=== PATIENT | female | born 1950 | race Caucasian/White ===

== ENCOUNTER 2022-01-03 15:58 | Inpatient (IN) | payer OTHER ==
--- OUTSIDE RECORDS SUMMARY | 2022-01-03 16:01 | XMS REPORT | Continuity of Care Document ---
:1950 Author Organization [facility] t Address [facility] [place] [address] Care Team Providers Name Role Phone Mandy GARDNER, A Primary Care Physician JOSIE JORDAN Attending Clinician Unavailable Abhi Attending Clinician Unavailable Juan Carlos Navarrete MD Attending Clinician JUAN CARLOS NAVARRETE Attending Clinician Unavailable Doctor Unassigned, Name Attending Clinician Unavailable DR NEELIMA ISSA Attending Clinician Unavailable DR DIANA Attending Clinician Unavailable Abhi Admitting Clinician Unavailable JUAN CARLOS NAVARRETE Admitting Clinician Unavailable DR NEELIMA ISSA Admitting Clinician Unavailable DR DIANA Admitting Clinician Unavailable Payers Payer Name Policy Policy Number Effective Expiration Source Type Date Date [facility] DUAL [id number] 2021 COMP HMO D SNP 00:00:00 [place] [id number] 2021 00:00:00 [facility] - [id number] 2021 [facility] 00:00:00 (MEDICARE REPLACEMENT/ADVANTAG E - [place] [id number] [place]) [place] [facility] - [id number] FQ (INSTITUTIONAL) [facility] - MEDICARE [id number] COMPLETE (MEDICARE REPLACEMENT HMO) MEDICAREMEDICARE [id number] 1990 [facility] ity of PART A & 00:00:00 [facility] [id number] 1990 [place] -[phone] [address] [address]Medicare AARP-UNITED [id number] 2019 [facility] HEALTHCAREUNITED 00:00:00 [place] Me dical HEALTHCARE MEDICARE Branc h [id number] 2018-Present[address] [address], [place] [address]Medicare Supplement Problems Condition Condition Condition Status Onset Resolution Last Treating Co mments Source Name Details Category Date Date Treatment Clinician Date Microhemat Microhemat Disease Active U nivers uria uria 1-31 ity of 00:00: [place] [facility] Hiatal Hiatal Disease Active 2018-09 Univers hernia hernia 1-10 ity of 00:00: [place] [facility] Esophageal Esophageal Disease Active 2018-09 U nivers thickening thickening 1-10 it y of 00:00: [place] 00 Medical Branch Acquired Acquired Disease Active Unive rs complex complex 4-10 ity of cyst of cyst of 00:00: [place] kidney kidney 00 Medical Branch Liver Liver Disease Active Univers lesion, lesion, 4-10 ity of left lobe left lobe [facility]: [facility] Adjustment Adjustment Disease Active U nivers disorder disorder 4-23 ity of with with 00:00: [place] depressed depressed 00 [facility] mood mood Branch Dysphagia, Dysphagia, Disease Active U nivers unspecifie unspecifie 4-23 it y of d type d type 00:00: [place] 00 Medical Branch Adjustment Adjustment Disease Active U nivers insomnia insomnia 4-23 ity of 00:00: [place] 00 Medical Branch Adjustment Adjustment Disease Active U nivers insomnia insomnia 4-23 ity of 00:00: [place] 00 Medical Branch Dyslipidem Dyslipidem Disease Active 2016-09 U nivers ia ia 0-05 ity of 00:00: [place] 00 Medical Branch Screening Screening Disease Active Overview: Univers for for 15 Formattin ity of colorectal colorectal 00:00: g of this [place] cancer cancer 00 note Medical might be Branch different from the original. Added automatic ally from request for surgery [id number] History of History of Disease Active U nivers head and head and 9 ity of neck neck 00:00: [place] cancer cancer 00 Medical Branch History of History of Disease Active U nivers head and head and 05-08 ity of neck neck 00:00: [place] radiation radiation 00 [facility] Branch History of History of Disease Active U nivers colonic colonic 9-05 ity of polyps polyps 00:00: [place] [facility] Hemorrhoid Hemorrhoid Disease Active U caitlin s, s, 05-08 ity of unspecifie [place]specifie [place] hemorrhoid hemorrhoid Br anch type type Essential Essential Disease Active Uni vers hypertensi hypertensi 05-08 it y of on on 00:00: [facility] Branch Protein-ca Protein-ca Disease Active U caitlin concetta concetta 12-26 ity of malnutriti malnutriti [place] Gastrostom Gastrostom Disease Active U nivdavie y in place y in place 12-26 it y of 00:00: [facility] Branch Acute Acute Problem Active [place] exacerbati Exacerbati da on of on of Medical chronic Chronic Group obstructiv Obstructiv e airways e Airways disease Disease Osteoporos Osteoporos Disease Active U caitlin is is ity of [facility] Underweigh Underweigh Disease Resolve 2017-12-21 2017-12-21 Univers t t d 05-08 00:00:00 19:35:59 ity of 00:00: [place] [facility] Allergies, Adverse Reactions, Alerts Allergy Allergy Status Severity Reaction(s) Onset Inactive Treating Comm ents Source Name Type Date Date Clinician NO KNOWN Drug Active Univers ALLERGIE Class ity of S [facility] No Known DA Active [facility] s Social History Social Habit Start Date Stop Date Quantity Comments Source Exposure to Not sure [facility] SARS-CoV-2 [place] [facility] (event) Branch Alcohol intake 2021-10-03 2021-10-03 Current [facility] 00:00:00 00:00:00 non-drinker of [facility] alcohol Branch (finding) Tobacco use and 2018-11-18 2018-11-18 Never used Universit y of exposure 00:00:00 00:00:00 [facility] Sex Ass[birth year] At [birth year] Universit y of 00:00:00 00:00:00 [facility] Smoking Status Start Date Stop Date Source Never smoker University [facility] Medical Branch Medications Ordered Filled Start Stop Current Ordering Indication Dosage Frequency Signature Comments Components Source Medication Medication Date Date Medication? Clinician (SIG) Name Name sinai Yes Poison garry Apply to [facility] 2-11 area(s) 2 ity of acetonide 00:00: (two) [place] 0.1 % cream 00 times Medical daily. Branch denosumab 2020-0 Yes 60mg inject 1 Univ ers 60 mg/mL 9-16 mL under ity of injection 00:00: [place] 00 every 6 Medical (six) Branch months. denosumab 2020-0 Yes 60mg inject 1 Univ ers 60 mg/mL 9-16 mL under ity of injection 00:00: [place] 00 every 6 Medical (six) Branch months. denosumab 2020-0 Yes 60mg inject 1 Univ ers 60 mg/mL 9-16 mL under ity of injection 00:[place] 00 every 6 Medical (six) Branch months. fluticasone fluticasone No fluticason [place] propionate propionate e da 50 50 propionate Medical mcg/actuati mcg/actuati 50 G roup on nasal on nasal mcg/actuat spray,suspe spray,suspe ion nasal nsion USE 1 nsion USE 1 spray,susp SPRAY BY SPRAY BY ension USE INTRANASAL INTRANASAL 1 SPRAY BY ROUTE EVERY ROUTE EVERY INTRANASAL DAY DAY ROUTE EVERY DAY Multi Multi No Multi [place] Vitamin Vitamin Vitamin da Medical Group Prolia 60 Prolia 60 No Prolia 60 [place] mg/mL mg/mL mg/mL da subcutaneou subcutaneou subcutaneo Medical s syringe s syringe us syringe Group INJECT 1ML INJECT 1ML INJECT 1ML UNDER THE UNDER THE UNDER THE SKIN EVERY SKIN EVERY SKIN EVERY 6 MONTHS 6 MONTHS 6 MONTHS Vitamin D3 Vitamin D3 No Vitamin D3 [place] one po one po one po da daily daily daily Medical Group Immunizations Ordered Filled Immunization Date Status Comments [facility] e Immunization Name Name COVID-19, mRNA, COVID-19, mRNA, 2021-06-24 Completed [facility] LNP-S, PF, 30 LNP-S, PF, 30 00:00:00 Group mcg/0.3 mL dose mcg/0.3 mL dose (VPHealthBioNTPixelated) (WALTOP-BioNTPixelated) SARS-COV-2 COVID-19 2021-06-24 Completed Unive rsity of PFIZER VACCINE 00:00:00 [facility] SARS-COV-2 COVID-19 2021-06-24 Completed Unive rsity of PFIZER VACCINE 00:00:00 [facility] COVID-19, mRNA, COVID-19, mRNA, 2020-12-10 Completed [facility] LNP-S, PF, 30 LNP-S, PF, 30 00:00:00 Group mcg/0.3 mL dose mcg/0.3 mL dose (Pfizer-BioNTech) (Pfizer-BioNTech) SARS-COV-2 COVID-19 2020-12-10 Completed Unive rsity of PFIZER VACCINE 00:00:00 [facility] SARS-COV-2 COVID-19 2020-12-10 Completed Unive rsity of PFIZER VACCINE 00:00:00 [facility] COVID-19, mRNA, COVID-19, mRNA, 2020-11-18 Completed [facility] LNP-S, PF, 30 LNP-S, PF, 30 00:00:00 Group mcg/0.3 mL dose mcg/0.3 mL dose (Pfizer-BioNTech) (Pfizer-BioNTech) SARS-COV-2 COVID-19 2020-11-18 Completed Unive rsity of PFIZER VACCINE 00:00:00 [facility] SARS-COV-2 COVID-19 2020-11-18 Completed Unive rsity of PFIZER VACCINE 00:00:00 [facility] Influenza High Dose 2020-05-25 Completed Unive rsity of Quad 00:00:00 [facility] Influenza High Dose 2020-05-25 Completed Unive rsity of Quad 00:00:00 [facility] Influenza High Dose 2019-05-30 Completed Unive rsity of 00:00:00 [facility] Influenza High Dose 2019-05-30 Completed Unive rsity of 00:00:00 [facility] Influenza High Dose 2019-05-30 Completed Unive rsity of 00:00:00 [facility] Pneumococcal 13 2018-11-18 Completed Universit y of Conjugate, PCV13 00:00:00 [facility] dical (Prevnar 13) Branch Pneumococcal 13 2018-11-18 Completed Universit y of Conjugate, PCV13 00:00:00 [facility] dical (Prevnar 13) Branch Pneumococcal 13 2018-11-18 Completed Universit y of Conjugate, PCV13 00:00:00 [facility] (Prevnar 13) [place] Influenza High Dose 2018-07-15 Completed Unive rsity of 00:00:00 [facility] Influenza High Dose 2018-07-15 Completed Unive rsity of 00:00:00 [facility] Influenza High Dose 2018-07-15 Completed Unive rsity of 00:00:00 [facility] Influenza High Dose 2017-08-02 Completed Unive rsity of 00:00:00 [facility] Influenza High Dose 2017-08-02 Completed Unive rsity of 00:00:00 [facility] Influenza High Dose 2017-08-02 Completed Unive rsity of 00:00:00 [facility] Vital Signs Vital Name Observation Time Observation Value Comments Source BMI (Body Mass 2021-12-22 00:00:00 19.5 kg/m2 [facility] Medical Index) Group BP Systolic 2021-12-22 00:00:00 148 mm[Hg] [facility] Body Weight 2021-12-22 00:00:00 113.7 [lb_av] [facility] BP Diastolic 2021-12-22 00:00:00 90 mm[Hg] [facility] Height 2021-12-22 00:00:00 64 [in_i] [facility] BP Diastolic 2021-12-06 00:00:00 89 mm[Hg] [facility] Height 2021-12-06 00:00:00 64 [in_i] [facility] BMI (Body Mass 2021-12-06 00:00:00 19.4 kg/m2 [facility] Medical Index) Group BP Systolic 2021-12-06 00:00:00 156 mm[Hg] [facility] Body Weight 2021-12-06 00:00:00 113 [lb_av] [facility] BP Diastolic 2021-11-16 00:00:00 99 mm[Hg] [facility] Height 2021-11-16 00:00:00 64 [in_i] [facility] BMI (Body Mass 2021-11-16 00:00:00 19.4 kg/m2 [facility] Medical Index) Group BP Systolic 2021-11-16 00:00:00 171 mm[Hg] [facility] Body Weight 2021-11-16 00:00:00 113.3 [lb_av] [facility] Height 2021-03-14 14:12:00 162.56 CM Weight 2021-03-14 14:12:00 51.7 KG Height 2021-01-27 14:08:00 162.56 CM Weight 2021-01-27 14:08:00 51.7 KG Systolic blood 2021-01-04 13:03:00 158 mm[Hg] Univer sity of [facility] Diastolic blood 2021-01-04 13:03:00 81 [facility]Hg[facility] 2021-01-04 13:03:00 70 /min [facility] Body temperature 2021-01-04 13:03:00 36.17 Noreen [facility] Respiratory rate 2021-01-04 13:03:00 16 /min [facility] height 2021-01-04 13:03:00 162.6 cm [facility] Body weight 2021-01-04 13:03:00 52.164 kg [facility] BMI 2021-01-04 13:03:00 19.74 kg/m2 [facility] Oxygen saturation in 2021-01-04 13:03:00 97 /min [facility] Arterial blood by [facility] Pulse oximetry Branch Procedures Procedure Date / Time Performing Clinician Source Performed unlisted imaging order 2021-12-22 00:00:00 [facility] IR GASTRO TUBE CHANGE 2021-10-07 14:40:28 Charly Navarrete [facility] Medical Branch AUTHORIZATION FOR RELEASE 2021-10-03 06:01:00 Doctor Unassigned, [facility] [place] [facility] REPLACE RT LENS SYNTH 2021-03-21 00:00:00 [facility] SUBST PERQ Center REPLACE LT LENS SYNTH 2021-02-07 00:00:00 [facility] SUBST PERQ Center IR GASTRO TUBE CHANGE 2021-01-04 13:56:03 [facility]rete [facility] Branch Percutaneous Endoscopic [place] [facility] Cholecystectomy [place] [facility] Hyste[facility] [place] [facility] Plan of Care Planned Activity Planned Date Details Comments Source Future Scheduled 2028-11-18 Screening for University of Test 00:00:00 osteoporosis [facility] (procedure) [code = Branch [id number]] Future Scheduled 2027-06-14 Screening for University of Test 00:00:00 malignant neoplasm of [place] [facility] colon (procedure) Branch [code = 717560381] Future Scheduled 2027-06-14 Screening for University of Test 00:00:00 malignant neoplasm of [facility] colon (procedure) Branch [code = [id number]] Future Scheduled 2021-05-04 INFLUENZA VACCINE Univer sity of Test 00:00:00 (Season Ended) [code = [facility] INFLUENZA VACCINE Branch (Season Ended)] Future Scheduled 2019-11-19 Medicare Annual Universi ty of Test 00:00:00 Wellness Visit [facility] (procedure) [code = Branch [id number]] Future Scheduled 2019-11-19 PNEUMOCOCCAL VACCINES Un iversity of Test 00:00:00 65+ (2 of 2 - PPSV23) [facility] [code = PNEUMOCOCCAL Branch VACCINES 65+ (2 of 2 - PPSV23)] Future Scheduled 2019-05-01 Screening for University of Test 00:00:00 malignant neoplasm of [facility] breast (procedure) Branch [code = 572752313] Future Scheduled 1998 Screening for occult Uni versity of Test 00:00:00 blood in feces [facility] (procedure) [code = Branch [id number]] Future Scheduled 1998 Stool DNA-based Universi ty of Test 00:00:00 colorectal cancer [facility] screening (procedure) Branch [code = 121089674376124] Future Scheduled 1998 Flexible fiberoptic Univ ersity of Test 00:00:00 sigmoidoscopy [facility] (procedure) [code = Branch [id number]] Future Scheduled 1998 Zoster Recombinant Unive rsity of Test 00:00:00 Vaccine (SHINGRIX) (1 [place] [facility] of 2) [code = Zoster Branch Recombinant Vaccine (SHINGRIX) (1 of 2)] Future Scheduled 1967 DTaP,Tdap,and Td Univers ity of Test 00:00:00 Vaccines (1 - Tdap) [facility] dical [code = DTaP,Tdap,and Branch Td Vaccines (1 - Tdap)] Future Scheduled 1960 Depression screening Uni versity of Test 00:00:00 (procedure) [code = [facility] dical [id number]] Branch Future Appointment 2022-03-30 Aayush Maldonado [place] [facility] 09:30:00 [facility]; [address] [place] [address] Encounters Start End Encounter Admission Attending Care Care Encounter Source Date/Time Date/Time Type Type Clinicians Facility Department ID 2022-01-06 2022-01-06 Outpatient Konrad JORDAN [facility] [id number] Univers 00:00:00 00:00:00 GIOVANNA grayson [facility] 2021-12-23 2021-12-23 Outpatient Yan_W [facility] [id number] [place] 01:49:00 01:49:00 0425 [facility] 2021-12-22 2021-12-22 [facility] [id number] [place] 09:44:00 09:44:00 0421 [facility] Group 2021-12-22 2021-12-22 KIERSTEN Maldonado [place] - [id number] [place] 00:00:00 00:00:00 MD: Aayush [facility], Network Group [address], [facility], Otolaryngol [place] rossJIM [facility] [address] , Ph. 2021-12-06 2021-12-06 Outpatient Yan_W CHRISTINE CHRISTINE [id number] [place] 11:25:00 11:25:00 0405 Medical Group 2021-12-06 2021-12-06 Outpatient Yan_W CHRISTINE CHRISTINE [id number] [place] 11:25:00 11:25:00 0406 Medical Group 2021-12-06 2021-12-06 KIERSTEN Maldonado [place] - [id number] [place] 00:00:00 00:00:00 : Aayush [facility], Network Group [address], [facility], Otolaryngol [place] rossJIM [facility] [address] , Ph. 2021-12-04 2021-12-04 Outpatient Yan_W [facility] [id number] [place] 05:52:00 05:52:00 0404 Medical Group 2021-11-16 2021-11-16 Outpatient Yan_W [facility] [id number] [place] 02:59:00 02:59:00 0316 Medical Group 2021-11-16 2021-11-16 [place] [id number] [place] 02:59:00 02:59:00 0317 Medical Group 2021-11-16 2021-11-16 [place] Yan[place] [id number] [place] 02:59:00 02:59:00 0329 Medical Group 2021-11-16 2021-11-16 Jorge A Mckeon MM [place] - [id number] [place] 00:00:00 00:00:00 MD: Aayush Gomes [facility], Network Group [address], [facility], Otolaryngol [facility] [address] , Ph. 2021-10-07 2021-10-07 [facility] Charly Navarrete [facility] [id number] Univers 07:18:10 23:59:00 Encounter Juan Carlos TANIA [id number] ity of CL[place] [id number] [id number] [facility] 803 Branch 2021-10-07 2021-10-07 Outpatient CHARLY PONCE [facility] [id number] Univers 07:18:10 23:59:00 ity of [facility] 2021-10-03 2021-10-03 Orders Doctor GUERA [id number] Univers 00:00:00 00:00:00 Only Unassigned, SUZI [id number] ity of [place] [facility] [id number] Esteban as [id number] [facility] 009 Branch 2021-03-21 2021-03-21 Outpatient Alannah ISSA [facility] [id number] [facility] 07:55:00 10:30:00 [facility] 2021-02-07 2021-02-07 Outpatient Alannah ORTIZ [facility] [id number] [place] 07:56:00 10:40:00 [facility] Results Test Description Test Time Test Comments Results Result Sourc e Comments Surgical Results [place] pathology study 5 Medical G roup 09:38:00 IR GASTRO TUBE Successful G-tube Un iversity of CHANGE (WITH 6 exchange with [place] [employer] FLUORO) 16:38:22 placement of a new 14 Bra [facility] Fr 2.5 cm jeff-Moran Gtube. Preliminary Report Dictated by Resident: Leanne Alvarez I, as teaching physician, was present during the entire procedure and/orduring the moran components. Charly Siegel MD., have reviewed this study and agree with theabove report.[facility], Radiant Results Inft User - 01/06/2021 11:39 AM CDTPROCEDURE: PERCUTANEOUS GASTROSTOMY EXCHANGEATTENDING: Charly Navarrete MD RESIDENT: Leanne Alvarez MDHISTORY: 70-year-old female here for routine exchange of G-tube.RADIATION DOSE: 1.1 mGyTECHNIQUE: Signed, informed consent was obtained from the patient afterdiscussing the risks, benefits and alternatives of the procedure. Thatcher protocol timeout was performed verifying correct patient, correctsite, and correct procedure. Images were archived to PACS. Contrast injection through the existing G-tube confirmed positioning withinthe stomach. Following this, using fluoroscopic guidance, a stiff guidewire was advanced through the existing G-tube, which was then removed. Anew 14 Fr jeff-Moran G tube was then advanced over the guide wire. Contrastinjection confirmed placement of tip in stomach. The G-tube was securedwith inflation of the balloon with 8 cc saline. No complications wereencountered during the procedure.IMPRESSIONS uccessful G-tube exchange with placement of a new 14 Fr 2.5 cm jeff-Moran Gtube. Preliminary Report Dictated by Resident: Leanne Samuels, as teaching physician, was present during the entire procedure and/orduring the moran components.Charly Siegel MD., have reviewed this study and agree with theabove report.
--- NOTE | 2022-01-03 17:17 | RAD REPORT ---
EXAM DESCRIPTION: RAD - Chest Pa And Lat (2 Views) - 01/03/2022 5:04 pm CLINICAL HISTORY: Cough COMPARISON: None TECHNIQUE: Frontal and lateral views of the chest were obtained. FINDINGS: The lungs are fibrotic. Interstitial markings are slightly more pronounced in the lower ri ght lung field. No comparative imaging is available. A mild or early interstitial infiltrate in the l ower right lung field is certainly possible. Patient has underlying COPD with upper lung field bullou s changes and scarring. Heart size is normal and central vasculature is within normal limits. No pleural effusion or pneu mothorax seen. No acute bony finding noted. No aortic abnormality. IMPRESSION: Baseline examination showing mildly asymmetric interstitial pattern in the lung bases, i ncreased on the right. In the absence of any comparison, early interstitial pneumonia in the right base is suspected. Baseline COPD.
[2022-01-03 18:08] LABS: Hematocrit 40.9 % (36.0-45.0); Lymphocytes % 8.5 % (15.3-44.8); MPV 10.7 fL (7.6-11.3); RBC Red Blood Cell Count 4.17 M/uL (3.86-4.86)
[2022-01-03 18:09] LABS: Absolute Lymphocytes (CBC) 1.4 K/uL (0.7-4.9)
--- NOTE | 2022-01-03 18:13 | EDPHYS ---
Physician Documentation [facility] Name: Kandy Rose Age: 71 yrs Sex: Female : 1950 Arrival Date: 01/03/2022 Time: 15:59 Bed 18 Private MD: Alyson Dowell ED Physician Jean Pierre Marquez HPI: 01/03 18:08 This 71 yrs old Female presents to ER via Ambulatory with complaints of Shortness Of rn Breath. 18:08 The patient has shortness of breath at rest, with light activity. Onset: The rn symptoms/episode began/occurred 3 day(s) ago. Duration: The symptoms are intermittent. The patient's shortness of breath is aggravated by exertion, light activity, is alleviated by nothing. Associated signs and symptoms: Pertinent positives: productive cough, fever, chills. Severity of symptoms: At their worst the symptoms were moderate in the emergency department the symptoms are unchanged. The patient has experienced similar episodes in the past. The patient has not recently seen a physician. Pt reports sob and productive cough, + fever and chills. Has swallowing problems and PEG tube. + recurrent pneumonia. + generalized weakness and dyspnea on exertion.. Historical: - Allergies: 16:08 No Known Allergies; ll1 - PMHx: 16:08 neck CA; ll1 - PSHx: 16:08 feeding tube; ll1 - Immunization history:: Client reports receiving the 2nd dose of the Covid vaccine. - Social history:: Smoking status: Patient denies any tobacco usage or history of. - Family history:: not pertinent. - Hospitalizations: : No recent hospitalization is reported. ROS: 18:08 Constitutional: Negative for fever, chills, and weight loss, Eyes: Negative for injury, rn pain, redness, and discharge, ENT: Negative for injury, pain, and discharge, Cardiovascular: Negative for chest pain, palpitations, and edema, Respiratory: + sob and productive cough Abdomen/GI: Negative for abdominal pain, nausea, vomiting, diarrhea, and constipation, Back: Negative for injury and pain, MS/Extremity: Negative for injury and deformity, Skin: Negative for injury, rash, and discoloration, Neuro: Negative for headache, numbness, tingling, and seizure. Exam: 18:08 Constitutional: This is a well developed, well nourished patient who is awake, alert, rn and in no acute distress. Head/Face: Normocephalic, atraumatic. Eyes: Periorbital areas with no swelling, redness, or edema. Cardiovascular: Tachycardic, regular Respiratory: + sob and productive cough Abdomen/GI: Soft, non-tender Skin: Warm, dry with normal turgor. Normal color with no rashes, no lesions, and no evidence of cellulitis. MS/ Extremity: Pulses equal, no cyanosis. Neurovascular intact. Full, normal range of motion. Equal circumference. Neuro: Awake and alert, GCS 15, oriented to person, place, time, and situation. Cranial nerves II-XII grossly intact. Motor strength 5/5 in all extremities. Sensory grossly intact. Cerebellar exam normal. Normal gait. Vital Signs: 16:06 BP 161 / 94; Pulse 102; Resp 18; Temp 99.3; Pulse Ox 94% on R/A; Weight 51.26 kg; ll1 Height 5 ft. 4 in. (162.56 cm); Pain 0/10; 18:28 BP 145 / 80; Pulse 80; Resp 20; Pulse Ox 94% on R/A; Pain 0/10; jh6 19:18 BP 172 / 84; Pulse 96; Resp 20; Pulse Ox 96% ; Pain 0/10; al4 20:45 BP 142 / 68; Pulse 94; Resp 23 S; Pulse Ox 93% on R/A; Pain 0/10; al4 22:15 BP 135 / 72; Pulse 87; Resp 22; Pulse Ox 93% ; al4 16:06 Body Mass Index 19.40 (51.26 kg, 162.56 cm) ll1 MDM: 17:11 Patient medically screened. rn 18:08 Differential diagnosis: Anemia Bronchitis pneumonia, Pneumothorax pulmonary edema. Data rn reviewed: vital signs, nurses notes, lab test result(s), radiologic studies, plain films, and as a result, I will admit patient. Counseling: I had a detailed discussion with the patient and/or guardian regarding: the historical points, exam findings, and any diagnostic results supporting the discharge/admit diagnosis, lab results, radiology results, the need for further work-up and treatment in the hospital. Response to treatment: the patient's symptoms have mildly improved after treatment, and as a result, I will admit patient. Admission orders: after a detailed discussion of the patient's condition and case, the admit orders are written by me. ED course: Pt ambulated and oxygen down to 91%, labored, dehydrated, early pneumonia, likely aspiration, will admit for further care. . 01/03 17:35 Order name: BMP; Complete Time: 19:00 rn 01/03 17:35 Order name: Blood Culture Adult (2) rn 01/03 17:35 Order name: CBC with Diff; Complete Time: 19:07 rn 01/03 17:35 Order name: PT-INR; Complete Time: 19:00 rn 01/03 17:35 Order name: Ptt, Activated; Complete Time: 19:00 rn 01/03 18:52 Order name: COVID-19 SARS RT PCR (Document "Date of Onset" if Symptomatic) 01/03 16:22 Order name: XRAY Chest Pa And Lat (2 Views); Complete Time: 17:36 rn 01/03 17:35 Order name: EKG; Complete Time: 17:36 rn 01/03 17:35 Order name: Cardiac monitoring; Complete Time: 18:24 rn 01/03 17:35 Order name: EKG - Nurse/Tech; Complete Time: 18:38 rn 01/03 17:35 Order name: IV Saline Lock; Complete Time: 18:24 rn 01/03 19:02 Order name: CBC Smear Scan; Complete Time: 19:07 EDMS 01/03 17:35 Order name: Labs collected and sent; Complete Time: 18:24 rn 01/03 17:35 Order name: O2 Per Protocol; Complete Time: 18:24 rn 01/03 17:35 Order name: O2 Sat Monitoring; Complete Time: 18:24 rn Administered Medications: 18:23 Drug: Zosyn (piperacillin-tazobactam) 3.375 grams Route: IVPB; Infused Over: 60 mins; 6 Site: right antecubital; 22:10 Follow up: Response: No adverse reaction; IV Status: Completed infusion al4 18:24 Drug: NS 0.9% 1000 ml Route: IV; Rate: 1000 ml; Site: right antecubital; [facility] 22:49 Follow up: IV Status: Completed infusion al4 Disposition Summary: 01/03/22 18:12 Hospitalization Ordered Hospitalization Status: Inpatient Admission rn Provider: Harry, Mohammad rn Location: Telemetry/MedSur (Inpatient) rn Condition: Stable rn Problem: new rn Symptoms: are unchanged rn Bed/Room Type: Standard rn Room Assignment: 209(01/03/22 20:34) cg Diagnosis - Pneumonia, unspecified organism rn - Aspiration rn Forms: - Medication Reconciliation Form rn - SBAR form rn Signatures: Dispatcher [employer] EDJean Pierre Pineda MD MD rn Garcia, Cindy RN RN Raimundo Sullivan RN RN 1 Kathrine Little RN RN 6 Brissa Bardales PA PA sb3 Dimas Marcus Corrections: (The following items were deleted from the chart) 20:34 18:12 rn cg
--- NOTE | 2022-01-03 18:13 | ER ---
Nurse's Notes [facility] Name: Kandy Rose Age: 71 yrs Sex: Female : 1950 Arrival Date: 01/03/2022 Time: 15:59 Bed 18 Private MD: Alyson Dowell Diagnosis: Pneumonia, unspecified organism;Aspiration Presentation: 01/03 16:06 Chief complaint: Patient states: SOB for 3 days. No fever. + cough. Body aches at ll1 times. Coronavirus screen: Vaccine status: Patient reports receiving the 2nd dose of the covid vaccine. Client denies travel out of the [place] in the last 14 days. cough unrelated to allergies, difficulty breathing, fatigue, shortness of breath, Client presents with at least one sign or symptom that may indicate coronavirus-19. Standard/surgical mask placed on the client. Ebola Screen: Patient denies travel to an Ebola-affected area in the 21 days before illness onset. Initial Sepsis Screen: Does the patient meet any 2 criteria? No. Patient's initial sepsis screen is negative. Does the patient have a suspected source of infection? Yes: Productive cough/pneumonia. Risk Assessment: Do you want to hurt yourself or someone else? Patient reports no desire to harm self or others. Onset of symptoms was January 01, 2022. 16:06 Method Of Arrival: Ambulatory ll1 16:06 Acuity: BERYL 3 ll1 Triage Assessment: 16:09 General: Appears uncomfortable, Behavior is cooperative, appropriate for age. Pain: ll1 Denies pain. Respiratory: Reports shortness of breath cough that is Onset: The symptoms/episode began/occurred 2-3 days, the patient has mild shortness of breath. Historical: - Allergies: 16:08 No Known Allergies; ll1 - PMHx: 16:08 neck CA; ll1 - PSHx: 16:08 feeding tube; ll1 - Immunization history:: Client reports receiving the 2nd dose of the Covid vaccine. - Social history:: Smoking status: Patient denies any tobacco usage or history of. - Family history:: not pertinent. - Hospitalizations: : No recent hospitalization is reported. Screenin:10 Abuse screen: Denies threats or abuse. Nutritional screening: No deficits noted. 6 Tuberculosis screening: No symptoms or risk factors identified. Fall Risk IV access (20 points). Assessment: 17:50 General: Appears in no apparent distress. comfortable, Behavior is calm, cooperative, jh6 PT BROUGHT BACK FROM LOBBY AT THIS TIME. 17:50 Pain: Denies pain. Cardiovascular: Reports fatigue, shortness of breath, since X 3 DAYS jh6 Capillary refill < 3 seconds Clubbing of nail beds is absent Patient's skin is warm and dry. Pulses are all present. Rhythm is regular. Respiratory: Airway is patent Trachea midline Respiratory effort is even, unlabored, relaxed, Respiratory pattern is regular, symmetrical, Breath sounds with crackles in right lower lobe and right posterior lower lobe Breath sounds are diminished. 19:15 Reassessment: Patient appears in no apparent distress at this time. Patient is alert, al4 oriented x 3, equal unlabored respirations, skin warm/dry/pink. Patient ambulating to restroom. . 19:17 General: Appears in no apparent distress. comfortable, Behavior is calm, cooperative. al4 Pain: Denies pain. Neuro: Level of Consciousness is awake, alert, obeys commands, Oriented to person, place, time, situation. Cardiovascular: Denies chest pain, Capillary refill < 3 seconds Patient's skin is warm and dry. Respiratory: Airway is patent Respiratory effort is even, unlabored, Respiratory pattern is regular, symmetrical. Musculoskeletal: Circulation, motion, and sensation intact. 21:00 Reassessment: Patient is alert, oriented x 3, equal unlabored respirations, skin al4 warm/dry/pink. patient ambulating independently to restroom. . 22:19 Reassessment: Patient appears in no apparent distress at this time. Patient is alert, al4 oriented x 3, equal unlabored respirations, skin warm/dry/pink. Vital Signs: 16:06 BP 161 / 94; Pulse 102; Resp 18; Temp 99.3; Pulse Ox 94% on R/A; Weight 51.26 kg; ll1 Height 5 ft. 4 in. (162.56 cm); Pain 0/10; 18:28 BP 145 / 80; Pulse 80; Resp 20; Pulse Ox 94% on R/A; Pain 0/10; jh6 19:18 BP 172 / 84; Pulse 96; Resp 20; Pulse Ox 96% ; Pain 0/10; al4 20:45 BP 142 / 68; Pulse 94; Resp 23 S; Pulse Ox 93% on R/A; Pain 0/10; al4 22:15 BP 135 / 72; Pulse 87; Resp 22; Pulse Ox 93% ; al4 16:06 Body Mass Index 19.40 (51.26 kg, 162.56 cm) 1 ED Course: 15:59 Patient arrived in ED. as 16:01 Alyson Dowell is Private Physician. as 16:08 Triage completed. 1 16:09 Arm band placed on Patient placed in an exam room, on a stretcher. 1 17:06 XRAY Chest Pa And Lat (2 Views) In Process Unspecified. EDMS 17:11 Jean Pierre Marquez MD is Attending Physician. rn 17:19 Kathrine Little RN is Primary Nurse. [facility] 18:00 Inserted saline lock: 22 gauge in right antecubital area, using aseptic technique. [facility] Blood collected. 18:10 Bed in low position. Call light in reach. Side rails up X2. [facility] 18:12 Priscilla Harry MD is Hospitalizing Provider. rn 23:40 No provider procedures requiring assistance completed. Patient admitted, IV remains in al4 place. Administered Medications: 18:23 Drug: Zosyn (piperacillin-tazobactam) 3.375 grams Route: IVPB; Infused Over: 60 mins; [facility] Site: right antecubital; 22:10 Follow up: Response: No adverse reaction; IV Status: Completed infusion mn4 18:24 Drug: NS 0.9% 1000 ml Route: IV; Rate: 1000 ml; Site: right antecubital; [facility] 22:49 Follow up: IV Status: Completed infusion mn4 Outcome: 18:12 Decision to Hospitalize by Provider. rn 23:40 Admitted to Med/surg Report called to RN by PITA Cortez al4 23:40 Condition: stable 23:40 Discharge instructions given to patient, Instructed on the need for admit, Demonstrated understanding of instructions. 23:46 Patient left the ED. al4 Signatures: Dispatcher [employer] EDMS Lisa Mcclain Roman, MD MD rn Lewis, Lynsay, RN RN [facility] Kathrine Little RN RN [facility] Dimas Marcus mn4 Corrections: (The following items were deleted from the chart) 16:10 16:06 BP 161 / 94; Pulse 102bpm; Resp 18bpm; Pulse Ox 92% RA; Temp 99.3F; 51.26 kg; ll1 Height 5 ft. 4 in.; BMI: 19.4; Pain 0/10; ll1
[2022-01-03] MEDS ORDERED: NA CHLORIDE 0.9% 1,000 ML ONE (18:19)
[2022-01-03] MEDS ORDERED: NA CHLORIDE 0.9% 100 ML IV ONE (18:19)
[2022-01-03] MEDS ORDERED: PIPERACIL/TAZO 3.375 GM VIAL IV ONE (18:19)
[2022-01-03 18:21] LABS: Protime INR 1.32
[2022-01-03 18:25] LABS: Potassium 3.6 mmol/L (3.5-5.1)
[2022-01-03 19:02] LABS: Blood Morphology Comment NOT SEEN (NOT SEEN); Platelet Estimate ADEQ; White Blood Cell Scan OK (OK)
--- NOTE | 2022-01-03 19:55 | P.HP ---
Certification for Inpatient Patient admitted to: Inpatient With expected LOS: <2 Midnights Patient will require the following post-hospital care: None Practitioner: I am a practitioner with admitting privileges, knowledge of patient current condition, hospital course, and medical plan of care. Services: Services provided to patient in accordance with Admission requirements found in Title 42 Section 412.3 of the Code of Federal Regulations <Brissa Bardales - Last Filed: 01/03/22 23:14> Patient History Date of Service: 01/03/22 Reason for admission: Pneumonia History of Present Illness: Patient is a 71 y/o female who presented to the ED with complaints of worsening SHOB, cough, chills x 3 days. Patient has a history of neck cancer that has completed treated with chemo and radiation and resulted in dysphagia and aphasia. She now has a PEG tube. She states that she can still swallow liquids but not foods. She does not recall a recent incident of choking while attempting to swallow. Labs in the ED significant for WBC 16 and CXR showed early interstitial pneumonia in the right base. Covid/flu negative. Patient not requiring supplemented O2 but did desat to 91% when ambulating. Will admit patient for further evaluation and treatment. Home medications list reviewed: Yes (NA) - Past Medical/Surgical History Diabetic: No -: Neck Cancer -: PEG -: Cholecystectomy -: Cataracts Psychosocial/ Personal History: Patient lives at home with her son. - Family History Family History: Reviewed- Non-Contributory - Social History Smoking Status: Never smoker Alcohol use: No CD- Drugs: No Caffeine use: No Place of Residence: Home <Negar Bardalesia - Last Filed: 01/03/22 23:14> Date of Service: 01/03/22 - Family History Father Notes: no medical issues Mother -: Lung disease Notes: emphysema <Priscilla Harry - Last Filed: 01/05/22 08:14> Review of Systems General: Chills, Weakness Respiratory: Cough, Shortness of Breath <JeffyBrissa - Last Filed: 01/03/22 23:14> Physical Examination - Physical Exam General: Alert, In no apparent distress, Oriented x3 HEENT: Atraumatic, PERRLA, EOMI, Sclerae nonicteric Neck: Supple, 2+ carotid pulse no bruit, No LAD, Without JVD or thyroid abnormality Respiratory: Clear to auscultation bilaterally, Normal air movement Cardiovascular: Regular rate/rhythm, Normal S1 S2 Gastrointestinal: Normal bowel sounds, Soft and benign, No tenderness, Other (PEG) Musculoskeletal: No tenderness Integumentary: No rashes Neurological: Normal gait, Normal strength at 5/5 x4 extr, Normal tone, Normal affect, Abnormal speech - Studies Laboratory Data (last 24 hrs) 01/03/22 18:00: PT 14.6 H, INR 1.32, APTT 30.3 01/03/22 18:00: WBC 16.0 H, Hgb 13.6, Hct 40.9, Plt Count 177 01/03/22 18:00: Sodium 137, Potassium 3.6, BUN 18, Creatinine 0.70, Glucose 115 H <Brissa Bardales - Last Filed: 01/03/22 23:14> Assessment and Plan - Problems (Diagnosis) (1) Pneumonia Current Visit: Yes Status: Acute Qualifiers: Pneumonia type: aspiration pneumonia Aspiration pneumonia type: unspecified Laterality: right Lung location: lower lobe of lung Qualified Code(s): J69.0 - Pneumonitis due to inhalation of food and vomit (2) History of malignant neoplasm of neck Current Visit: No Status: Resolved (3) Dysphagia Current Visit: Yes Status: Chronic Qualifiers: Dysphagia type: unspecified Qualified Code(s): R13.10 - Dysphagia, unspecified (4) Aphasia Current Visit: Yes Status: Chronic (5) PEG (percutaneous endoscopic gastrostomy) status Current Visit: Yes Status: Chronic - Plan -cont zosyn for treatment of pneumonia, likely aspiration -Patient states she can swallow liquid but not food. cont tube feeds via PEG -breathing treatments PRN and incentive spirometry ordered -pulmonology consulted -tylenol PRN fever -lovenox for VTE ppx Discharge Plan: Home Plan to discharge in: 48 Hours - Advance Directives Does patient have a Living Will: No Does patient have a Durable POA for Healthcare: No - Code Status/Comfort Care Code Status Assessed: Yes (Full) Critical Care: No Time Spent Managing Pts Care (In Minutes): 70 <Brissa Bardales - Last Filed: 01/03/22 23:14> Date of Service: 01/03/22 Subjective: HPI as mentioned above Physical Examination: Vitals: Afebrile vital signs are stable Physical exam: Cardiovascular: Within normal limits. Lungs: Within normal limits Abdomen: Within normal limits Neuro: Awake, alert, oriented to person place and time Assessment: 1. Acute COPD exacerbation Plan: 1. Continue with current plan of care as mentioned above <Priscilla Harry - Last Filed: 01/05/22 08:14>
[2022-01-03 23:32] VITALS: BMI 22.1
[2022-01-03] MEDS ORDERED: ONDANSETRON 4 MG/2 ML VIAL IV PRN (23:46)
[2022-01-03] MEDS ORDERED: ACETAMINOPHEN 160 MG/5 ML UCUP PO PRN (23:46)
[2022-01-03] MEDS ORDERED: PIPER TAZO 3.375 GM in NA CHLORIDE 0.9% 100 ML IV SCH (23:46)
[2022-01-03] MEDS ORDERED: ALBUTEROL 2.5 MG/3 ML NEB SOL NEB PRN (23:46)
[2022-01-04 01:39] LABS: Urine Appearance Clear (Clear); Urine Bilirubin Negative (Negative); Urine Blood 2+ (Negative); Urine Color Yellow (Yellow); Urine Glucose Negative (Negative); Urine Protein 2+ (Negative)
[2022-01-04 01:41] LABS: Urine Microscopic Reflex ORDER UMIC
[2022-01-04 01:46] LABS: Urine Bacteria <20 /HPF (<20); Urine RBC 20-50 /HPF (NONE SEEN)
[2022-01-04 02:49] LABS: Absolute Lymphocytes (CBC) 1.6 K/uL (0.7-4.9); Hematocrit 34.8 % (36.0-45.0); Lymphocytes % 13.5 % (15.3-44.8); MPV 10.6 fL (7.6-11.3); RBC Red Blood Cell Count 3.61 M/uL (3.86-4.86)
[2022-01-04 03:12] LABS: BUN Blood Urea Nitrogen 16 mg/dL (7-18); Bicarbonate 28 mmol/L (21-32); Glucose Level 105 mg/dL (74-106); Magnesium 2.2 mg/dL (1.8-2.4); Phosphorus 1.7 mg/dL (2.5-4.9); Potassium 3.5 mmol/L (3.5-5.1); Sodium Level 142 mmol/L (136-145)
--- NOTE | 2022-01-04 07:09 | RAD REPORT ---
EXAM DESCRIPTION: RAD - Chest Pa And Lat (2 Views) - 01/04/2022 6:22 am CLINICAL HISTORY: PNA COMPARISON: Two view chest 01/03/2022 TECHNIQUE: Frontal and lateral views of the chest were obtained. FINDINGS: The lungs are normally aerated. There remains right greater than left interstitial and pat ashli alveolar opacification. A mild or early right lung base pneumonia remains the primary considerati on. In the absence of comparison imaging, asymmetric lung base scarring is possible. The patient has fibrotic stranding and bullous changes in each upper lung field. Heart size is normal and central vasculature is within normal limits. No pleural effusion or pneumot horax seen. No acute bony finding noted. No aortic abnormality. IMPRESSION: Stable chest examination. The asymmetrically increased interstitial and alveolar opaciti es of the right base favor mild or early pneumonia in the acute clinical setting. Given the extent of underlying COPD change and absent comparison imaging, asymmetric fibrosis is poss ible.
[2022-01-04] MEDS: JEVITY 1.5 CAL LIQUID 1,000 ML BOT FT SCH ×3 (09:00→21:00)
[2022-01-04] MEDS: ENOXAPARIN 40 MG/0.4 ML SQ SCH (10:53)
[2022-01-04] MEDS ORDERED: PIPER TAZO 3.375 GM in NA CHLORIDE 0.9% 100 ML IV SCH (12:00)
--- NOTE | 2022-01-04 12:54 | EKG ---
Test Date: 2022-01-03 Test Time: 18:32:02 Specialty Finishing Utility Person: HOLLAND MEASUREMENT RESULTS: Intervals: Rate: 86 VA: 150 QRSD: 70 QT: 354 QTc: 423 Blaine: P: 65 VA: 150 QRS: 54 T: 50 INTERPRETIVE STATEMENTS: Normal sinus rhythm Normal ECG Compared to ECG 08/15/2005 12:24:00 No significant changes Electronically Signed On 01-04-22 12:52:02 CDT by Gerry Marcus
--- NOTE | 2022-01-04 12:58 | P.CNS ---
Date of Consult: 01/04/22 Reason for Consult: Possible pneumonia Chief Complaint: Pneumonia History of Present Illness: Patient is 71 years of age presented with acute onset of cough chills fever congestion history of head and neck cancer was treated with chemo and radiation resulted in dysphagia and now has a PEG tube No evidence of pneumonia on the chest x-ray no prior history of COPD Allergies No Known Allergies Allergy (Unverified 01/03/22 23:32) Home Medications: NK [No Home Meds] 01/03/22 - Past Medical/Surgical History Diabetic: No -: Neck Cancer -: PEG -: Cholecystectomy -: Cataracts Psychosocial/ Personal History: Patient lives at home with her son. - Family History Father Notes: no medical issues Mother Medical History: Lung disease Notes: emphysema - Social History Alcohol use: No CD- Drugs: No Caffeine use: No Place of Residence: Home Review of Systems General: Weakness Respiratory: Cough, Shortness of Breath Physical Examination Temp Pulse Resp BP Pulse Ox 98.8 F 83 16 123/73 94 01/04/22 08:00 01/04/22 08:00 01/04/22 08:00 01/04/22 08:00 01/04/22 08:00 General: Alert, In no apparent distress, Oriented x3 HEENT: Atraumatic Neck: Supple Respiratory: Clear to auscultation bilaterally, Diminished Cardiovascular: No edema, Regular rate/rhythm, Normal S1 S2 Gastrointestinal: Normal bowel sounds, Soft and benign Laboratory Data (last 24 hrs) 01/03/22 18:00: PT 14.6 H, INR 1.32, APTT 30.3 01/03/22 18:00: WBC 16.0 H, Hgb 13.6, Hct 40.9, Plt Count 177 01/03/22 18:00: Sodium 137, Potassium 3.6, BUN 18, Creatinine 0.70, Glucose 115 H - Problems (1) Pneumonia Current Visit: Yes Status: Acute Plan: Acute SOb and cough patchy changes on Ct Tx with steroids and antibiotics. Labs reviewed. Vitals stable plan for discharge on pred 10 BID and levaquin for 7 days f/u with me in 2 wks Qualifiers: Aspiration pneumonia type: unspecified Laterality: right Lung location: unspecified part of lung
[2022-01-04] MEDS: ALBUTEROL 2.5 MG/3 ML NEB SOL NEB SCH ×2 (14:13→20:00)
[2022-01-04] MEDS: levoFLOXacin 500 MG TAB PO SCH (15:24)
[2022-01-04] MEDS: predniSONE 20 MG TAB PO SCH ×2 (15:24→21:20)
--- NOTE | 2022-01-04 15:26 | RAD REPORT ---
EXAM DESCRIPTION: CT - Chest Angio - 01/04/2022 2:47 pm CLINICAL HISTORY: Rule out PE COMPARISON: No comparisons FINDINGS: Chest Wall: No suspicious thyroid nodules or pathologic lymphadenopathy. Lungs: Areas of mild nodularity predominantly in the right middle lobe and right lower lobe. Apical s carring. Pleura: No significant effusions or pneumothorax. Mediastinum/juan manuel: No pathologic lymphadenopathy. Circumferentially thickened mid and distal esophagus which may reflect esophagitis. Pulmonary arteries/Aorta: No filling defect identified. No aortic aneurysm. Heart: No significant pericardial effusion. Normal heart size. Upper abdomen: Low-density lesion in the left hepatic lobe has benign imaging features. Cholecystecto my Bones: Mildly expansile sclerotic appearance of the right lateral seventh rib is likely related to a healed rib fracture. A healed right sixth rib fractures also noted though the sclerotic appearance is less exuberant. All CT scans are performed using dose optimization technique as appropriate and may include automated exposure control or mA/KV adjustment according to patient size. IMPRESSION: Negative for pulmonary embolism. Mild nodularity in the right lung consistent with a mil d infectious or inflammatory process.
[2022-01-05] MEDS: ALBUTEROL 2.5 MG/3 ML NEB SOL NEB SCH ×2 (01:35→07:50)
[2022-01-05 04:30] LABS: Absolute Lymphocytes (CBC) 0.4 K/uL (0.7-4.9); Hematocrit 35.7 % (36.0-45.0); MPV 10.6 fL (7.6-11.3)
[2022-01-05 04:42] LABS: Potassium 4.2 mmol/L (3.5-5.1)
--- NOTE | 2022-01-05 08:13 | P.PN ---
Date of Service: 01/04/22 Subjective Pt doing ok; respiratory status improving Physical Examination - Physical Exam General: Alert, In no apparent distress, Oriented x3 Respiratory: Clear to auscultation bilaterally, Normal air movement Cardiovascular: Regular rate/rhythm, Normal S1 S2 Gastrointestinal: Normal bowel sounds, Soft and benign, No tenderness, Other (PEG) Neurological: No focal deficits Assessment and Plan - Problems (Diagnosis) (1) Pneumonia Current Visit: Yes Status: Acute Qualifiers: Pneumonia type: aspiration pneumonia Aspiration pneumonia type: unspecified Laterality: right Lung location: lower lobe of lung Qualified Code(s): J69.0 - Pneumonitis due to inhalation of food and vomit (2) History of malignant neoplasm of neck Current Visit: No Status: Resolved (3) Dysphagia Current Visit: Yes Status: Chronic Qualifiers: Dysphagia type: unspecified Qualified Code(s): R13.10 - Dysphagia, unspecified (4) Aphasia Current Visit: Yes Status: Chronic (5) PEG (percutaneous endoscopic gastrostomy) status Current Visit: Yes Status: Chronic - Plan -Cont zosyn for treatment of pneumonia, likely aspiration -Patient states she can swallow liquid but not food. cont tube feeds via PEG -Breathing treatments PRN and incentive spirometry ordered -Pulmonology consulted -Tylenol PRN fever -Lovenox for VTE ppx
[2022-01-05 08:47] VITALS: O2SAT 95
[2022-01-05] MEDS: levoFLOXacin 500 MG TAB PO SCH (08:50)
[2022-01-05] MEDS: predniSONE 20 MG TAB PO SCH (08:50)
[2022-01-05] MEDS: ENOXAPARIN 40 MG/0.4 ML SQ SCH (08:51)
[2022-01-05] MEDS: JEVITY 1.5 CAL LIQUID 1,000 ML BOT FT SCH (08:52)
[2022-01-05 12:19] VITALS: BP 118/74; TEMP 98.9
== END 2022-01-05 13:40 | disposition home or self-care (01) | DRG 178 ==
LOC: ER 15:58 → ERHOLD 19:44 → 2ND 22:30
PROVIDERS: ADMIT Hospitalist; ATTEND Hospitalist
DX: J69.0 Pneumonitis due to inhalation of food and vomit (principal); R47.01 Aphasia; R13.10 Dysphagia, unspecified; J44.9 Chronic obstructive pulmonary disease, unspecified; Z93.1 Gastrostomy status; Z85.89 Personal history of malignant neoplasm of other organs and systems; Z90.49 Acquired absence of other specified parts of digestive tract; Z20.822 Contact with and (suspected) exposure to COVID-19; Z83.6 Family history of other diseases of the respiratory system
CPT/HCPCS: 36415; 71046; 71275; 80048; 81003; 81015; 83605; 83735; 84100; 84439; 84443; 85025; 85610; 85730; 87040; 93005; 94010; 94640; 94760; 96361; 96365; 96366; 99285; J1650; J2543; J7030; J7512; Q9967; U0003

== ENCOUNTER 2023-11-18 09:00 | Inpatient (IN) | payer OTHER ==
--- OUTSIDE RECORDS SUMMARY | 2023-11-18 09:05 | XMS REPORT | Continuity of Care Document ---
Author Name Unknown Address [address] [place] [id number] [facility] Address [address] [place] [address] Care Team Providers Care Labor Relations Director Name Role Phone MINO LINDSAY Primary Care Physician Unavaila Mino Bird Attending Clinician Unavailable Fanny SINGH Attending Clinician Unavailable Fanny Pizano Attending Clinician [phone] Doctor Unassigned, Dinosaur Attending Clinician U tamaraailMINO Corbett Attending Clinician Unavailable Mino Ford DO Attending Clinician Unavaila fitz Yan_W Attending Clinician Unavailable GIOVANNA BOSE Attending Clinician Unavailab Sendy GARDNER, Giovanna Thompson Attending Clinician [phone] JAZIEL FLYNN Attending Clinician Unavaila Jaziel Burt Attending Clinician [phone] VANESSA LUNA Attending Clinician Unavailable CHARLY NAVARRETE Attending Clinician Unavailab Charly Westbrook MD Attending Clinician [phone] JIM BARTON Attending Clinician Unavailable Rigo Daniel MD Attending Clinician [phone] Lab, Ang - Db Attending Clinician Unavailable RIGO DANIEL Attending Clinician Unavaila fitz 1, [facility] Infusion Nurse Attending Clinician Eric Amezcua DO Attending Clinician [phone] MAEGAN, DR GUERA ORTEZ Attending Clinician U KALANI العراقي Attending Clinician Unavailable DIANA, DR LINARES Attending Clinician Unavailab [place] Attending Clinician Elisha Kaminski MD, [place] Attending Clinician Pob, [facility] Lab Main Attending Clinician UnavailVanessa Adams Attending Clinician [phone] Guera Cruz PA-C Attending Clinician [phone] GUERA CRUZ Attending Clinician Unavailable 2, [facility] Attending Clinician Unavailable NATALIE STARK Attending Clinician Unavailable Lincoln GARDNER, Natalie Attending Clinician [phone] Alysia Daniel MD Attending Clinician [phone] Blossom GARDNER, Rory Attending Clinician Un available Elpidio Quintana Attending Clinician UnavailRORY Guerrero Attending Clinician Oskar Concepcion Attending Clinician Unavailable Viola LEMA, Maddy Attending Clinician Fanny De La Rosa Admitting Clinician Unavailable MINO FORD Admitting Clinician Unavailable Abhi Admitting Clinician Unavailable GIOVANNA BOSE Admitting Clinician Unavailab JAZIEL Bradley Admitting Clinician Unavaila CHARLY Bauer Admitting Clinician Unavailab marie ISSA, DR GUERA ORTEZ Admitting Clinician U jude ORTIZ, DR LINARES Admitting Clinician Unavailab NATALIE Patel Admitting Clinician Unavailable Payers Payer Name Policy Type Policy Number Effective Date Expirati on Date Source MEDICARE PART A \\T\\ B [id number] 1990 00:00:00 [facility] MEDICARE SUPPLEMENT [id number] 2019 00:00:00 [facility] Dual Complete Choice (Regional PPO D-SNP) 53 [id number] 2021 00:00:[address] [facility] DUAL COMP HMO D SNP [id number] 2021 00:00:00 [place] [id number] 2021 00:00:00 [facility] (MEDICARE REPLACEMENT/ADVAN TAGE - HMO) [id number] 2021 00:00[place] [id number] [place] [facility] (INSTITUTIONAL) [id number] [facility] MEDICARE COMPLETE (MEDICARE REPLACEMENT HMO) [id number] Problems Condition Name Condition Details Condition Category Status Onset Date Resolution Date Last Treatment Date Treating Clinician Comments Source Microhemat uria Microhemat uria Disease Active 10-03 00:00: 00 [facility] Hiatal hernia Hiatal hernia Disease Active 2018-09 00:00: 00 [facility] Esophageal thickening Esophageal thickening Disease Active 2018-09 00:00: 00 [facility] 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 Disease Active 12-11 00:00: 00 [facility] Liver lesion, left lobe Liver lesion, left lobe Disease Active 12-11 00:00: 00 [facility] Adjustment disorder with depressed mood Adjustment disorder with depressed mood Disease Active 12-24 00:00: 00 [facility] Dysphagia, unspecifie d type Dysphagia, unspecifie d type Disease Active 12-24 00:00: 00 [facility] Adjustment insomnia Adjustment insomnia Disease Active 12-24 00:00: 00 [facility] Dyslipidem ia Dyslipidem ia Disease Active 2016-09 00:00: 00 [facility] Screening for colorectal cancer Screening for colorectal cancer Disease Active 05-18 00:00: 00 Overview: Formattin g of this note might be different from the original. Added automatic ally from request for surgery [id number] [facility] History of head and neck cancer History of head and neck cancer Disease Active 05-08 00:00: 00 [facility] History of head and neck radiation History of head and neck radiation Disease Active 05-08 00:00: 00 [facility] History of colonic polyps History of colonic polyps Disease Active 05-08 00:00: 00 [facility] Hemorrhoid s, unspecifie d hemorrhoid type Hemorrhoid s, unspecifie d hemorrhoid type Disease Active 05-08 00:00: 00 [facility] Essential hypertensi on Essential hypertensi on Disease Active 05-08 00:00: 00 [facility] 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 Disease Active 12-26 00:00: 00 [facility] [id number] Age related osteoporos is, unspecifie d pathologic al fracture presence Problem [facility] [id number] Personal history of malignant neoplasm of tongue Problem [facility] [id number] Age-relate d osteoporos is without current pathologic al fracture Problem [facility] Disorder of kidney and/or ureter Abnormal kidney function Problem [facility] [id number] Gastrostom y status Problem [facility] Osteoporos is Osteoporos is Disease Active [facility] Acute exacerbati on of chronic obstructiv e airways disease Acute Exacerbati on of Chronic Obstructiv e Airways Disease Problem Active [facility] Allergies, Adverse Reactions, Alerts Allergy Name Allergy Type Status Severity Reaction(s) Onset Date Inactive Date Treating Clinician Comments Source No Known Drug Allergie s DA Active [facility] NO KNOWN ALLERGIE S Drug Class Active [facility] Social History Social Habit Start Date Stop Date Quantity Comments Source History of Tobacco Use [facility] Sex Assigned At [facility] Exposure to SARS-CoV-2 (event) 2022-09-14 00:00:00 2022-09-24 11:44:00 Not sure [facility] Alcohol intake 2022-09-24 00:00:00 2022-09-24 00:00:00 Current non-drinker of alcohol (finding) [facility] Tobacco use and exposure 2018-11-18 00:00:00 2018-11-18 00:00:00 Smokeless tobacco non-user [facility] Smoking Status Start Date Stop Date Source Never smoked tobacco [facility] Medications Ordered Medication Name Filled Medication Name Start Date Stop Date Current Medication? Ordering Clinician Indication Dosage Frequency Signature (SIG) Comments Components Source Prolia Prolia 4-0 1-08 00:00: 00 No 60mg [facility] Prolia Prolia 4-0 1-08 00:00: 00 No 60mg [facility] Prolia Prolia 4-0 1-08 00:00: 00 No 60mg [facility] Prolia Prolia 3-0 8- 00:00: 00 No 60mg [facility] Prolia Prolia 3-0 8- 00:00: 00 No 60mg [facility] Prolia Prolia 3-0 8- 00:00: 00 No 60mg [facility] Prolia Prolia 3-0 8 00:00: 00 No 60mg [facility] Prolia Prolia 3-0 8- 00:00: 00 No 60mg [facility] Prolia Prolia 3-0 8- 00:00: 00 No 60mg [facility] Prolia Prolia 3-0 8- 00:00: 00 No 60mg [facility] Prolia Prolia 3-0 8- 00:00: 00 No 60mg [facility] Prolia Prolia 3-0 8- 00:00: 00 No 60mg [facility] Prolia Prolia 3-0 8- 00:00: 00 No 60mg [facility] Prolia Prolia 3-0 8- 00:00: 00 No 60mg [facility] Prolia Prolia 3-0 2- 00:00: 00 No 60mg [facility] Prolia Prolia 3-0 2- 00:00: 00 No 60mg [facility] Prolia Prolia 3-0 2- 00:00: 00 No 60mg [facility] Prolia Prolia 3-0 2- 00:00: 00 No 60mg [facility] Prolia Prolia 2022-0 2- 00:00: 00 No [facility] Prolia Prolia 2022-0 2- 00:00: 00 No 60mg [facility] Prolia Prolia 3-0 2- 00:00: [address] [facility] Prolia Prolia 2022-0 2- 00:00: [address] [facility] Prolia Prolia 2022-0 2- 00:00: 00 No 60mg [facility] Prolia Prolia 2022-0 2- 00:00: 00 No 60mg [facility] Prolia Prolia 2022-0 2- 00:00: 00 No 60mg [facility] Prolia Prolia 2022-0 2- 00:00: 00 No 60mg [facility] NaCl 0.9% (NS) bolus infusion 1,000 mL 09-24 21:45: 00 09-24 22:00 :00 No 1000mL at 999 mL/hr, 1,000 mL, IV Infusion, ONCE, 1 dose, On 09/24/22 at 1545, STAT [facility] iopamidol (ISOVUE 370-500 mL) injection 83 mL 09-24 18:55: 00 09-24 19:15 :00 No [id number] 83mL 83 mL, Intravenou s, ONCE, 1 dose, On 09/24/22 at 1315, Routine [facility] amoxicillin -pot clavulanate (AUGMENTIN ES-600) 600-42.9 mg/5 mL suspension 09-24 00:00: 00 10-05 05:59 :00 No [id number] 870mg Take 7.25 mL by mouth in the morning and 7.25 mL in the evening. Do all this for 10 days. [facility] denosumab 60 mg/mL injection 16 00:00: 00 Yes 60mg inject 1 mL under the skin every 6 (six) months. [facility] denosumab 60 mg/mL injection 05-19 00:00: 00 Yes 60mg inject 1 mL under the skin every 6 (six) months. [facility] denosumab 60 mg/mL injection 05-19 00:00: 00 Yes 60mg inject 1 mL under the skin every 6 (six) months. [facility] One Daily Adults 50+ - One Daily Adults 50+ - No One Daily Adults 50+ - Vitamin D3 [id number] UNIT/GM Vitamin D3 5997872 UNIT/GM No Vitamin D3 5164058 UNIT/GM Prolia 60 MG/ML Prolia 60 MG/ML No Prolia 60 MG/ML One Daily Adults 50+ - One Daily Adults 50+ - No One Daily Adults 50+ - Vitamin D3 1340085 UNIT/GM Vitamin D3 4190804 UNIT/GM No Vitamin D3 3665845 UNIT/GM Prolia 60 MG/ML Prolia 60 MG/ML No Prolia 60 MG/ML One Daily Adults 50+ - One Daily Adults 50+ - No One Daily Adults 50+ - Vitamin D3 2517512 UNIT/GM Vitamin D3 3518581 UNIT/GM No Vitamin D3 9032842 UNIT/GM One Daily Adults 50+ - One Daily Adults 50+ - No One Daily Adults 50+ - Vitamin D3 7657279 UNIT/GM Vitamin D3 5201053 UNIT/GM No Vitamin D3 6734289 UNIT/GM Prolia 60 MG/ML Prolia 60 MG/ML No Prolia 60 MG/ML One Daily Adults 50+ - One Daily Adults 50+ - No One Daily Adults 50+ - Vitamin D3 6684961 UNIT/GM Vitamin D3 7229195 UNIT/GM No Vitamin D3 3673668 UNIT/GM Prolia 60 MG/ML Prolia 60 MG/ML No Prolia 60 MG/ML One Daily Adults 50+ - One Daily Adults 50+ - No One Daily Adults 50+ - Vitamin D3 9642215 UNIT/GM Vitamin D3 7464528 UNIT/GM No Vitamin D3 0326272 UNIT/GM Prolia 60 MG/ML Prolia 60 MG/ML No Prolia 60 MG/ML One Daily Adults 50+ - One Daily Adults 50+ - No One Daily Adults 50+ - Prolia 60 MG/ML Prolia 60 MG/ML No Prolia 60 MG/ML Vitamin D3 8822349 UNIT/GM Vitamin D3 2651636 UNIT/GM No Vitamin D3 3840085 UNIT/GM One Daily Adults 50+ - One Daily Adults 50+ - No One Daily Adults 50+ - Prolia 60 MG/ML Prolia 60 MG/ML No Prolia 60 MG/ML Vitamin D3 7751485 UNIT/GM Vitamin D3 4866873 UNIT/GM No Vitamin D3 7788789 UNIT/GM Vitamin D3 7205405 UNIT/GM Vitamin D3 4889312 UNIT/GM No Vitamin D3 0550368 UNIT/GM One Daily Adults 50+ - One Daily Adults 50+ - No One Daily Adults 50+ - Prolia 60 MG/ML Prolia 60 MG/ML No Prolia 60 MG/ML Vitamin D3 8190717 UNIT/GM Vitamin D3 5266875 UNIT/GM No Vitamin D3 5369776 UNIT/GM One Daily Adults 50+ - One Daily Adults 50+ - No One Daily Adults 50+ - Prolia 60 MG/ML Prolia 60 MG/ML No Prolia 60 MG/ML Vitamin D3 0183706 UNIT/GM Vitamin D3 9065227 UNIT/GM No Vitamin D3 9634022 UNIT/GM One Daily Adults 50+ - One Daily Adults 50+ - No One Daily Adults 50+ - Prolia 60 MG/ML Prolia 60 MG/ML No Prolia 60 MG/ML One Daily Adults 50+ - One Daily Adults 50+ - No One Daily Adults 50+ - Vitamin D3 7553873 UNIT/GM Vitamin D3 4341898 UNIT/GM No Vitamin D3 7609600 UNIT/GM One Daily Adults 50+ - One Daily Adults 50+ - No One Daily Adults 50+ - Vitamin D3 2413061 UNIT/GM Vitamin D3 8767202 UNIT/GM No Vitamin D3 9061641 UNIT/GM One Daily Adults 50+ - One Daily Adults 50+ - No One Daily Adults 50+ - Vitamin D3 1882445 UNIT/GM Vitamin D3 3807244 UNIT/GM No Vitamin D3 5979907 UNIT/GM One Daily Adults 50+ - One Daily Adults 50+ - No One Daily Adults 50+ - Vitamin D3 3228346 UNIT/GM Vitamin D3 8523511 UNIT/GM No Vitamin D3 8452496 UNIT/GM Prolia 60 MG/ML Prolia 60 MG/ML No Prolia 60 MG/ML fluticasone propionate 50 mcg/actuati on nasal spray,suspe nsion USE 1 SPRAY BY INTRANASAL ROUTE EVERY DAY fluticasone propionate 50 mcg/actuati on nasal spray,suspe nsion USE 1 SPRAY BY INTRANASAL ROUTE EVERY DAY No fluticason e propionate 50 mcg/actuat ion nasal spray,susp ension USE 1 SPRAY BY INTRANASAL ROUTE EVERY DAY [facility] Multi Vitamin Multi Vitamin No Multi Vitamin [facility] Prolia 60 mg/mL subcutaneou s syringe INJECT 1ML UNDER THE SKIN EVERY 6 MONTHS Prolia 60 mg/mL subcutaneou s syringe INJECT 1ML UNDER THE SKIN EVERY 6 MONTHS No Prolia 60 mg/mL subcutaneo us syringe INJECT 1ML UNDER THE SKIN EVERY 6 MONTHS [facility] Vitamin D3 one po daily Vitamin D3 one po daily No Vitamin D3 one po daily [facility] Prolia 60 MG/ML Prolia 60 MG/ML 10-20 00:00 :00 No Prolia 60 MG/ML Prolia 60 MG/ML Prolia 60 MG/ML 10-20 00:00 :00 No Prolia 60 MG/ML Immunizations Ordered Immunization Name Filled Immunization Name Date Status Comments Source Pneumovax (PPSV23) Pneumovax (PPSV23) 2022-09-20 10:49:00 Completed [facility] Pneumovax (PPSV23) Pneumovax (PPSV23) 2022-09-20 10:49:00 Completed [facility] FLUZONE HIGH DOSE OVER 65 FLUZONE HIGH DOSE OVER 65 2022-01-27 15:51:00 Completed [facility] FLUZONE HIGH DOSE OVER 65 FLUZONE HIGH DOSE OVER 65 2022-01-27 15:51:00 Completed [facility] FLUZONE HIGH DOSE OVER 65 FLUZONE HIGH DOSE OVER 65 2022-01-27 15:51:00 Completed [facility] FLUZONE HIGH DOSE OVER 65 FLUZONE HIGH DOSE OVER 65 2022-01-27 15:51:00 Completed [facility] Prevnar 13 (PCV13) Prevnar 13 (PCV13) 2022-01-27 15:50:00 Completed [facility] Prevnar 13 (PCV13) Prevnar 13 (PCV13) 2022-01-27 15:50:00 Completed [facility] Prevnar 13 (PCV13) Prevnar 13 (PCV13) 2022-01-27 15:50:00 Completed [facility] Prevnar 13 (PCV13) Prevnar 13 (PCV13) 2022-01-27 15:50:00 Completed [facility] Pfizer BioNTech COVID-19 Vaccine, Bivalent Pfizer BioNTech COVID-19 Vaccine, Bivalent 2021-06-24 18:40:00 Completed [facility] Pfizer BioNTech COVID-19 Vaccine, Bivalent Pfizer BioNTech COVID-19 Vaccine, Bivalent 2021-06-24 18:40:00 Completed [facility] Pfizer BioNTech COVID-19 Vaccine, Bivalent Pfizer BioNTech COVID-19 Vaccine, Bivalent 2021-06-24 18:40:00 Completed [facility] Pfizer BioNTech COVID-19 Vaccine, Bivalent Pfizer BioNTech COVID-19 Vaccine, Bivalent 2021-06-24 18:40:00 Completed [facility] SARS-COV-2 COVID-19 PFIZER VACCINE 2021-06-24 00:00:00 Completed [facility] SARS-COV-2 COVID-19 PFIZER VACCINE 2021-06-24 00:00:00 Completed [facility] SARS-COV-2 COVID-19 PFIZER VACCINE 2021-06-24 00:00:00 Completed [facility] COVID-19, mRNA, LNP-S, PF, 30 mcg/0.3 mL dose (Pfizer-BioNTech) COVID-19, mRNA, LNP-S, PF, 30 mcg/0.3 mL dose (Pfizer-BioNTech) 2021-06-24 00:00:00 Completed [facility] Pfizer COVID-19 Vaccine Pfizer COVID-19 Vaccine 2020-12-10 18:39:00 Completed [facility] Pfizer COVID-19 Vaccine Pfizer COVID-19 Vaccine 2020-12-10 18:39:00 Completed [facility] Pfizer COVID-19 Vaccine Pfizer COVID-19 Vaccine 2020-12-10 18:39:00 Completed [facility] Pfizer COVID-19 Vaccine Pfizer COVID-19 Vaccine 2020-12-10 18:39:00 Completed [facility] SARS-COV-2 COVID-19 PFIZER VACCINE 2020-12-10 00:00:00 Completed [facility] SARS-COV-2 COVID-19 PFIZER VACCINE 2020-12-10 00:00:00 Completed [facility] SARS-COV-2 COVID-19 PFIZER VACCINE 2020-12-10 00:00:00 Completed [facility] COVID-19, mRNA, LNP-S, PF, 30 mcg/0.3 mL dose (Pfizer-BioNTech) COVID-19, mRNA, LNP-S, PF, 30 mcg/0.3 mL dose (Pfizer-BioNTech) 2020-12-10 00:00:00 Completed [facility] Pfizer COVID-19 Vaccine Pfizer COVID-19 Vaccine 2020-11-18 18:38:00 Completed [facility] Pfizer COVID-19 Vaccine Pfizer COVID-19 Vaccine 2020-11-18 18:38:00 Completed [facility] Pfizer COVID-19 Vaccine Pfizer COVID-19 Vaccine 2020-11-18 18:38:00 Completed [facility] Pfizer COVID-19 Vaccine Pfizer COVID-19 Vaccine 2020-11-18 18:38:00 Completed [facility] SARS-COV-2 COVID-19 PFIZER VACCINE 2020-11-18 00:00:00 Completed [facility] SARS-COV-2 COVID-19 PFIZER VACCINE 2020-11-18 00:00:00 Completed [facility] SARS-COV-2 COVID-19 PFIZER VACCINE 2020-11-18 00:00:00 Completed [facility] COVID-19, mRNA, LNP-S, PF, 30 mcg/0.3 mL dose (Pfizer-BioNTech) COVID-19, mRNA, LNP-S, PF, 30 mcg/0.3 mL dose (Pfizer-BioNTech) 2020-11-18 00:00:00 Completed [facility] Influenza High Dose Quad 2020-05-25 00:00:00 Completed [facility] Influenza High Dose Quad 2020-05-25 00:00:00 Completed [facility] Influenza High Dose Quad 2020-05-25 00:00:00 Completed [facility] Influenza High Dose 2019-05-30 00:00:00 Completed [facility] Influenza High Dose 2019-05-30 00:00:00 Completed [facility] Influenza High Dose 2019-05-30 00:00:00 Completed [facility] Pneumococcal 13 Conjugate, PCV13 (Prevnar 13) 2018-11-18 00:00:00 Completed [facility] Pneumococcal 13 Conjugate, PCV13 (Prevnar 13) 2018-11-18 00:00:00 Completed [facility] Pneumococcal 13 Conjugate, PCV13 (Prevnar 13) 2018-11-18 00:00:00 Completed [facility] Influenza High Dose 2018-07-15 00:00:00 Completed [facility] Influenza High Dose 2018-07-15 00:00:00 Completed [facility] Influenza High Dose 2018-07-15 00:00:00 Completed [facility] Influenza High Dose 2017-08-02 00:00:00 Completed [facility] Influenza High Dose 2017-08-02 00:00:00 Completed [facility] Influenza High Dose 2017-08-02 00:00:00 Completed [facility] Pneumovax (PPSV23) Pneumovax (PPSV23) Unknown Completed [facility] FLUZONE HIGH DOSE OVER 65 FLUZONE HIGH DOSE OVER 65 Unknown Completed [facility] Prevnar 13 (PCV13) Prevnar 13 (PCV13) Unknown Completed [facility] Pfizer BioNTech COVID-19 Vaccine, Bivalent Pfizer BioNTech COVID-19 Vaccine, Bivalent Unknown Completed [facility] Pfizer COVID-19 Vaccine Pfizer COVID-19 Vaccine Unknown Completed [facility] Pfizer COVID-19 Vaccine Pfizer COVID-19 Vaccine Unknown Completed [facility] Pneumovax (PPSV23) Pneumovax (PPSV23) Unknown Completed [facility] FLUZONE HIGH DOSE OVER 65 FLUZONE HIGH DOSE OVER 65 Unknown Completed [facility] Prevnar 13 (PCV13) Prevnar 13 (PCV13) Unknown Completed [facility] Pfizer BioNTech COVID-19 Vaccine, Bivalent Pfizer BioNTech COVID-19 Vaccine, Bivalent Unknown Completed [facility] Pfizer COVID-19 Vaccine Pfizer COVID-19 Vaccine Unknown Completed [facility] Pfizer COVID-19 Vaccine Pfizer COVID-19 Vaccine Unknown Completed [facility] Pneumovax (PPSV23) Pneumovax (PPSV23) Unknown Completed [facility] FLUZONE HIGH DOSE OVER 65 FLUZONE HIGH DOSE OVER 65 Unknown Completed [facility] Prevnar 13 (PCV13) Prevnar 13 (PCV13) Unknown Completed [facility] Pfizer BioNTech COVID-19 Vaccine, Bivalent Pfizer BioNTech COVID-19 Vaccine, Bivalent Unknown Completed [facility] Pfizer COVID-19 Vaccine Pfizer COVID-19 Vaccine Unknown Completed [facility] Pfizer COVID-19 Vaccine Pfizer COVID-19 Vaccine Unknown Completed [facility] Pneumovax (PPSV23) Pneumovax (PPSV23) Unknown Completed [facility] FLUZONE HIGH DOSE OVER 65 FLUZONE HIGH DOSE OVER 65 Unknown Completed [facility] Prevnar 13 (PCV13) Prevnar 13 (PCV13) Unknown Completed [facility] Pfizer BioNTech COVID-19 Vaccine, Bivalent Pfizer BioNTech COVID-19 Vaccine, Bivalent Unknown Completed [facility] Pfizer COVID-19 Vaccine Pfizer COVID-19 Vaccine Unknown Completed [facility] Pfizer COVID-19 Vaccine Pfizer COVID-19 Vaccine Unknown Completed [facility] Pneumovax (PPSV23) Pneumovax (PPSV23) Unknown Completed [facility] FLUZONE HIGH DOSE OVER 65 FLUZONE HIGH DOSE OVER 65 Unknown Completed [facility] Prevnar 13 (PCV13) Prevnar 13 (PCV13) Unknown Completed [facility] Pfizer BioNTech COVID-19 Vaccine, Bivalent Pfizer BioNTech COVID-19 Vaccine, Bivalent Unknown Completed [facility] Pfizer COVID-19 Vaccine Pfizer COVID-19 Vaccine Unknown Completed [facility] Pfizer COVID-19 Vaccine Pfizer COVID-19 Vaccine Unknown Completed [facility] Pneumovax (PPSV23) Pneumovax (PPSV23) Unknown Completed [facility] FLUZONE HIGH DOSE OVER 65 FLUZONE HIGH DOSE OVER 65 Unknown Completed [facility] Prevnar 13 (PCV13) Prevnar 13 (PCV13) Unknown Completed [facility] Pfizer BioNTech COVID-19 Vaccine, Bivalent Pfizer BioNTech COVID-19 Vaccine, Bivalent Unknown Completed [facility] Pfizer BioNTech COVID-19 Vaccine, Bivalent Pfizer BioNTech COVID-19 Vaccine, Bivalent Unknown Completed [facility] Fluad (aIIV4) - SDS - 0.5mL Fluad (aIIV4) - SDS - 0.5mL Unknown Completed [facility] Pfizer COVID-19 Vaccine Pfizer COVID-19 Vaccine Unknown Completed [facility] Pfizer COVID-19 Vaccine Pfizer COVID-19 Vaccine Unknown Completed [facility] Shingrix Shingrix Unknown Completed [facility] Pneumovax (PPSV23) Pneumovax (PPSV23) Unknown Completed [facility] FLUZONE HIGH DOSE OVER 65 FLUZONE HIGH DOSE OVER 65 Unknown Completed [facility] Prevnar 13 (PCV13) Prevnar 13 (PCV13) Unknown Completed [facility] Pfizer BioNTech COVID-19 Vaccine, Bivalent Pfizer BioNTech COVID-19 Vaccine, Bivalent Unknown Completed [facility] Pfizer BioNTech COVID-19 Vaccine, Bivalent Pfizer BioNTech COVID-19 Vaccine, Bivalent Unknown Completed [facility] Fluad (aIIV4) - SDS - 0.5mL Fluad (aIIV4) - SDS - 0.5mL Unknown Completed [facility] Pfizer COVID-19 Vaccine Pfizer COVID-19 Vaccine Unknown Completed [facility] Pfizer COVID-19 Vaccine Pfizer COVID-19 Vaccine Unknown Completed [facility] Shingrix Shingrix Unknown Completed [facility] Pneumovax (PPSV23) Pneumovax (PPSV23) Unknown Completed [facility] FLUZONE HIGH DOSE OVER 65 FLUZONE HIGH DOSE OVER 65 Unknown Completed [facility] Prevnar 13 (PCV13) Prevnar 13 (PCV13) Unknown Completed [facility] Pfizer BioNTech COVID-19 Vaccine, Bivalent Pfizer BioNTech COVID-19 Vaccine, Bivalent Unknown Completed [facility] Pfizer BioNTech COVID-19 Vaccine, Bivalent Pfizer BioNTech COVID-19 Vaccine, Bivalent Unknown Completed [facility] Fluad (aIIV4) - SDS - 0.5mL Fluad (aIIV4) - SDS - 0.5mL Unknown Completed [facility] Pfizer COVID-19 Vaccine Pfizer COVID-19 Vaccine Unknown Completed [facility] Pfizer COVID-19 Vaccine Pfizer COVID-19 Vaccine Unknown Completed [facility] Shingrix Shingrix Unknown Completed [facility] Pneumovax (PPSV23) Pneumovax (PPSV23) Unknown Completed [facility] FLUZONE HIGH DOSE OVER 65 FLUZONE HIGH DOSE OVER 65 Unknown Completed [facility] Prevnar 13 (PCV13) Prevnar 13 (PCV13) Unknown Completed [facility] Pfizer BioNTech COVID-19 Vaccine, Bivalent Pfizer BioNTech COVID-19 Vaccine, Bivalent Unknown Completed [facility] Pfizer BioNTech COVID-19 Vaccine, Bivalent Pfizer BioNTech COVID-19 Vaccine, Bivalent Unknown Completed [facility] Fluad (aIIV4) - SDS - 0.5mL Fluad (aIIV4) - SDS - 0.5mL Unknown Completed [facility] Pfizer COVID-19 Vaccine Pfizer COVID-19 Vaccine Unknown Completed [facility] Pfizer COVID-19 Vaccine Pfizer COVID-19 Vaccine Unknown Completed [facility] Shingrix Shingrix Unknown Completed [facility] Pneumovax (PPSV23) Pneumovax (PPSV23) Unknown Completed [facility] FLUZONE HIGH DOSE OVER 65 FLUZONE HIGH DOSE OVER 65 Unknown Completed [facility] Prevnar 13 (PCV13) Prevnar 13 (PCV13) Unknown Completed [facility] Pfizer BioNTech COVID-19 Vaccine, Bivalent Pfizer BioNTech COVID-19 Vaccine, Bivalent Unknown Completed [facility] Pfizer BioNTech COVID-19 Vaccine, Bivalent Pfizer BioNTech COVID-19 Vaccine, Bivalent Unknown Completed [facility] Fluad (aIIV4) - SDS - 0.5mL Fluad (aIIV4) - SDS - 0.5mL Unknown Completed [facility] Pfizer COVID-19 Vaccine Pfizer COVID-19 Vaccine Unknown Completed [facility] Pfizer COVID-19 Vaccine Pfizer COVID-19 Vaccine Unknown Completed [facility] Shingrix Shingrix Unknown Completed [facility] Pneumovax (PPSV23) Pneumovax (PPSV23) Unknown Completed [facility] FLUZONE HIGH DOSE OVER 65 FLUZONE HIGH DOSE OVER 65 Unknown Completed [facility] Prevnar 13 (PCV13) Prevnar 13 (PCV13) Unknown Completed [facility] Pfizer BioNTech COVID-19 Vaccine, Bivalent Pfizer BioNTech COVID-19 Vaccine, Bivalent Unknown Completed [facility] Pfizer COVID-19 Vaccine Pfizer COVID-19 Vaccine Unknown Completed [facility] Pfizer COVID-19 Vaccine Pfizer COVID-19 Vaccine Unknown Completed [facility] Vital Signs Vital Name Observation Time Observation Value Comments S ource height 2023-09-10 08:20:00 63 [in_i] Commo n [facility] weight 2023-09-10 08:20:00 107.6 [lb_av] Co mmon [facility] temperature 2023-09-10 08:20:00 97.2 [degF] Com mon [facility] bmi 2023-09-10 08:20:00 19.06 kg/m2 Comm on [facility] oximetry 2023-09-10 08:20:00 96 % Commo n [facility] respiratory rate 2023-09-10 08:20:00 16 /min Common [facility] blood pressure systolic 2023-09-10 08:20:00 130 mm[Hg] [facility] blood pressure diastolic 2023-09-10 08:20:00 86 mm[Hg] [facility] height 2023-08-09 08:20:00 63 [in_i] Commo n [facility] weight 2023-08-09 08:20:00 109.2 [lb_av] Co [facility] temperature 2023-08-09 08:20:00 97.2 [degF] Com [facility] bmi 2023-08-09 08:20:00 19.34 kg/m2 Comm on [facility] oximetry 2023-08-09 08:20:00 97 % Commo n [facility] respiratory rate 2023-08-09 08:20:00 16 /min Common [facility] blood pressure systolic 2023-08-09 08:20:00 130 mm[Hg] [facility] blood pressure diastolic 2023-08-09 08:20:00 82 mm[Hg] [facility] height 2023-04-11 10:40:00 63 [in_i] Commo n [facility] weight 2023-04-11 10:40:00 109.2 [lb_av] Co [facility] temperature 2023-04-11 10:40:00 97.2 [degF] Com [facility] bmi 2023-04-11 10:40:00 19.34 kg/m2 Comm on [facility] oximetry 2023-04-11 10:40:00 95 % Commo n [facility] respiratory rate 2023-04-11 10:40:00 16 /min Common [facility] blood pressure systolic 2023-04-11 10:40:00 130 mm[Hg] [facility] blood pressure diastolic 2023-04-11 10:40:00 68 mm[Hg] [facility] height 2022-12-20 08:20:00 63 [in_i] Commo n [facility] weight 2022-12-20 08:20:00 112.6 [lb_av] Co mmon [facility] temperature 2022-12-20 08:20:00 96.8 [degF] Com [facility] bmi 2022-12-20 08:20:00 19.94 kg/m2 Comm on [facility] oximetry 2022-12-20 08:20:00 95 % Commo n [facility] respiratory rate 2022-12-20 08:20:00 18 /min Common [facility] blood pressure systolic 2022-12-20 08:20:00 139 mm[Hg] Common [facility] blood pressure diastolic 2022-12-20 08:20:00 84 mm[Hg] Common [facility] height 2022-10-04 09:00:00 63 [in_i] Commo n [facility] weight 2022-10-04 09:00:00 112 [lb_av] Comm on [facility] temperature 2022-10-04 09:00:00 97.3 [degF] Com [facility] bmi 2022-10-04 09:00:00 19.84 kg/m2 Comm on [facility] oximetry 2022-10-04 09:00:00 98 % Commo n [facility] respiratory rate 2022-10-04 09:00:00 18 /min Common [facility] blood pressure systolic 2022-10-04 09:00:00 136 mm[Hg] [facility] blood pressure diastolic 2022-10-04 09:00:00 78 mm[Hg] [facility] Systolic blood pressure 2022-09-24 20:09:00 139 mm[Hg] [facility] Diastolic blood pressure 2022-09-24 20:09:00 81 mm[Hg] [facility] Heart rate 2022-09-24 20:09:00 85 /min [facility] Respiratory rate 2022-09-24 20:09:00 19 /min [facility] Oxygen saturation in Arterial blood by Pulse oximetry 2022-09-24 20:09:00 97 /min [facility] Body temperature 2022-09-24 17:45:09 36.78 Noreen [facility] Body height 2022-09-24 17:25:00 162.6 cm [facility] Body weight 2022-09-24 17:25:00 49.896 kg [facility] BMI 2022-09-24 17:25:00 18.88 kg/m2 [facility] height 2022-09-20 10:00:00 63 [in_i] Commo n [facility] weight 2022-09-20 10:00:00 112.6 [lb_av] Co mmon [facility] temperature 2022-09-20 10:00:00 97.1 [degF] Com mon [facility] bmi 2022-09-20 10:00:00 19.94 kg/m2 Comm on [facility] oximetry 2022-09-20 10:00:00 96 % Commo n [facility] respiratory rate 2022-09-20 10:00:00 16 /min [facility] blood pressure systolic 2022-09-20 10:00:00 130 mm[Hg] [facility] blood pressure diastolic 2022-09-20 10:00:00 86 mm[Hg] [facility] height 2022-09-20 11:20:00 63 [in_i] Commo n [facility] weight 2022-09-20 11:20:00 112.6 [lb_av] Co mmon [facility] temperature 2022-09-20 11:20:00 97.1 [degF] Com mon [facility] bmi 2022-09-20 11:20:00 19.94 kg/m2 Comm on [facility] oximetry 2022-09-20 11:20:00 96 % Commo n [facility] respiratory rate 2022-09-20 11:20:00 16 /min [facility] blood pressure systolic 2022-09-20 11:20:00 130 mm[Hg] Common [facility] blood pressure diastolic 2022-09-20 11:20:00 86 mm[Hg] Common [facility] height 2022-06-20 15:20:00 63 [in_i] Commo n [facility] weight 2022-06-20 15:20:00 113 [lb_av] Comm on [facility] temperature 2022-06-20 15:20:00 98.2 [degF] Com mon [facility] bmi 2022-06-20 15:20:00 20.01 kg/m2 Comm on [facility] oximetry 2022-06-20 15:20:00 96 % Commo n [facility] respiratory rate 2022-06-20 15:20:00 16 /min Common [facility] blood pressure systolic 2022-06-20 15:20:00 133 mm[Hg] [facility] blood pressure diastolic 2022-06-20 15:20:00 80 mm[Hg] [facility] Systolic blood pressure 2022-04-10 13:26:00 112 mm[Hg] [facility] Diastolic blood pressure 2022-04-10 13:26:00 64 mm[Hg] [facility] Heart rate 2022-04-10 13:26:00 88 /min [facility] Body temperature 2022-04-10 13:26:00 36.44 Noreen [facility] Respiratory rate 2022-04-10 13:26:00 16 /min [facility] Body height 2022-04-10 13:26:00 162.6 cm [facility] Body weight 2022-04-10 13:26:00 50.349 kg [facility] BMI 2022-04-10 13:26:00 19.05 kg/m2 [facility] Oxygen saturation in Arterial blood by Pulse oximetry 2022-04-10 13:26:00 97 /min [facility] BP Diastolic 2021-12-22 00:00:00 90 mm[Hg] [facility] Height 2021-12-22 00:00:00 64 [in_i] [facility] BMI (Body Mass Index) 2021-12-22 00:00:00 19.5 kg/m2 [facility] BP Systolic 2021-12-22 00:00:00 148 mm[Hg] [facility] Body Weight 2021-12-22 00:00:00 113.7 [lb_av] [facility] BP Diastolic 2021-12-06 00:00:00 89 mm[Hg] [facility] Height 2021-12-06 00:00:00 64 [in_i] [facility] BMI (Body Mass Index) 2021-12-06 00:00:00 19.4 kg/m2 [facility] BP Systolic 2021-12-06 00:00:00 156 mm[Hg] [facility] Body Weight 2021-12-06 00:00:00 113 [lb_av] [facility] BP Diastolic 2021-11-16 00:00:00 99 mm[Hg] [facility] Height 2021-11-16 00:00:00 64 [in_i] [facility] BMI (Body Mass Index) 2021-11-16 00:00:00 19.4 kg/m2 [facility] BP Systolic 2021-11-16 00:00:00 171 mm[Hg] [facility] Body Weight 2021-11-16 00:00:00 113.3 [lb_av] [facility] Height 2021-03-14 14:12:00 162.56 CM Weight 2021-03-14 14:12:00 51.7 KG Height 2021-01-27 14:08:00 162.56 CM Weight 2021-01-27 14:08:00 51.7 KG Procedures Procedure Date / Time Performed Performing Clinician Source CT ABDOMEN PELVIS W CONTRAST 2022-09-24 19:08:31 Fanny Singh [facility] MAGNESIUM 2022-09-24 18:20:00 Fanny Singh [facility] COMP. METABOLIC PANEL (59085) 2022-09-24 18:20:00 Fanny Singh [facility] LIPASE 2022-09-24 17:37:00 Fanny Singh [facility] TROPONIN I 2022-09-24 17:37:00 Fanny Singh [facility] CBC WITH DIFF 2022-09-24 17:37:00 Fanny Singh [facility] URINALYSIS 2022-09-24 17:37:00 Fanny Singh [facility] CONSENT/REFUSAL FOR DIAGNOSIS AND TREATMENT 2022-09-24 17:20:18 Doctor Unassigned, Dinosaur [facility] AUTHORIZATION FOR RELEASE OF PHI 2022-06-12 05:01:00 Doctor Unassigned, Dinosaur [facility] IR GASTRO TUBE CHANGE (WITH FLUORO) 2022-04-10 14:00:00 Manuel Nathan [facility] unlisted imaging order 2021-12-22 00:00:00 [facility] REPLACE RT LENS SYNTH SUBST PERQ 2021-03-21 00:00:00 [facility] REPLACE LT LENS SYNTH SUBST PERQ 2021-02-07 00:00:00 [facility] Percutaneous Endoscopic Gastrostomy [facility] Cholecystectomy [facility] Hysterectomy [facility] Encounters Start Date/Time End Date/Time Encounter Type Admission Type Attending Clinicians Care Facility Care Department Encounter ID Source 2023-07-20 15:03:00 Outpatient Mino Lindsay ST[facility] STLC [id number] [facility] 2022-12-20 08:01:01 Outpatient Mino Lindsay STLC STLMLC [id number] [facility] 2022-09-18 08:03:01 Outpatient Mino Lindsay STLC STLMLC [id number] [facility] 2022-06-20 14:53:03 Outpatient Mino Lindsay STLC STLMLC [id number] [facility] 2021-07-04 16:54:10 Emergency [facility] [id number] [facility] 2023-09-10 00:00:00 2023-09-10 00:00:00 NON-BILLAB LE VISIT STLMLC STLMLC [id number] [facility] 2023-09-07 00:00:00 2023-09-07 00:00:00 (TEL) STLMLC STLMLC [id number] [facility] 2023-08-09 00:00:00 2023-08-09 00:00:00 OFFICE VISIT ESTAB PT LEVEL 3 STLMLC STLMLC [id number] [facility] 2023-05-15 00:00:00 2023-05-15 00:00:00 (TEL) STLMLC STLMLC [id number] [facility] 2023-04-11 00:00:00 2023-04-11 00:00:00 OFFICE VISIT ESTAB PT LEVEL 3 STLMLC STLMLC [id number] [facility] 2023-01-18 00:00:00 2023-01-18 00:00:00 (TEL) STLMLC STLMLC [id number] [facility] 2022-12-29 00:00:00 2022-12-29 00:00:00 (TEL) STLMLC STLMLC [id number] [facility] 2022-12-27 00:00:00 2022-12-27 00:00:00 (TEL) STLMLC STLMLC [id number] [facility] 2022-12-20 00:00:00 2022-12-20 00:00:00 OFFICE VISIT ESTAB PT LEVEL 3 STLMLC STLMLC [id number] [facility] 2022-10-26 00:00:00 2022-10-26 00:00:00 (TEL) STLMLC STLMLC [id number] [facility] 2022-10-04 00:00:00 2022-10-04 00:00:00 OFFICE VISIT ESTAB PT LEVEL 1 STLMLC STLMLC [id number] [facility] 2022-09-24 11:28:00 2022-09-24 16:18:00 Emergency X Fanny SINGH [facility] ERT [id number] [facility] 2022-09-24 11:28:00 2022-09-24 16:18:00 Emergency Yancy, K Bell [facility] [id number] 350.1.13.10 4.2.7.2.686 [id number] [facility] 2022-09-20 00:00:00 2022-09-20 00:00:00 SUB ANNUAL [facility] WELLNESS VISIT STLMLC STLMLC [id number] [facility] 2022-09-20 00:00:00 2022-09-20 00:00:00 OFFICE VISIT ESTAB PT LEVEL 4 STLMLC STLMLC [id number] [facility] 2022-07-05 00:00:00 2022-07-05 00:00:00 (TEL) STLMLC STLMLC [id number] [facility] 2022-06-20 00:00:00 2022-06-20 00:00:00 OFFICE VISIT NEW PT [facility]EL [id number] 2022-06-12 00:00:00 2022-06-12 00:00:00 Orders Only Doctor Unassigned, Dinosaur [facility] 1..840.114 350.1.13.10 4.2.7.2.686 [id number] [facility] 2022-04-10 09:00:00 2022-04-10 23:59:00 Outpatient Konrad [facility] [id number] [facility] 2022-04-10 09:00:00 2022-04-10 23:59:00 Outpatient Konrad [facility] [id number] [facility] 2022-04-10 08:07:46 2022-04-10 23:59:00 Hospital Encounter Logan [facility] 1.840.114 350.1.13.10 4.2.7.2.686 [id number] [facility] 2022-02-27 05:31:00 2022-02-27 05:31:00 Outpatient Mike_W [facility]G [facility] [id number] [facility] 2022-01-19 08:11:33 2022-01-19 23:59:00 Outpatient GIOVANNA PINEDA [facility] [id number] [facility] 2022-01-19 08:11:33 2022-01-19 23:59:00 Hospital Encounter Giovanna Bose [facility] 1.840.114 350.1.13.10 4.2.7.2.686 [id number] [facility] 2022-01-19 08:11:33 2022-01-19 23:59:00 Outpatient GIOVANNA PINEDA [facility] [id number] [facility] 2022-01-12 13:52:00 2022-01-12 17:25:00 Emergency X JAZIEL FLYNN [facility] ERT [id number] [facility] 2022-01-12 13:52:00 2022-01-12 17:25:00 Emergency Jaziel Flynn [facility] [id number] 350.1.13.10 4.2.7.2.686 [id number] [facility] 2022-01-06 00:00:00 2022-01-06 00:00:00 Outpatient GIOVANNA PINEDA [facility] [id number] [facility] 2021-12-29 09:00:00 2021-12-29 09:00:00 Outpatient VANESSA DE LA CRUZ [facility] [id number] [facility] 2021-12-29 09:00:00 2021-12-29 09:00:00 Outpatient VANESSA DE LA CRUZ [facility] [id number] [facility] 2021-12-23 01:49:00 2021-12-23 01:49:00 Outpatient Yan_W [facility] [id number] [facility] 2021-12-22 09:44:00 2021-12-22 09:44:00 Outpatient Yan_W [facility] [id number] [facility] 2021-12-22 00:00:00 2021-12-22 00:00:00 Jorge A Mckeon MD: [address] [place] [address], [address], [place] [address] , [facility] [id number] [facility] 2021-12-06 11:25:00 2021-12-06 11:25:00 [facility] [id number] [facility] 2021-12-06 11:25:00 2021-12-06 11:25:00 [place] [id number] [facility] 2021-12-06 00:00:00 2021-12-06 00:00:00 Jorge A Mckeon MD: [address], [address], [place] [id number] , Ph. [facility] - Otolaryngol ogy-MOB [id number] [facility] 2021-12-04 05:52:00 2021-12-04 05:52:00 [place] [id number] [facility] 2021-11-16 02:59:00 2021-11-16 02:59:00 [place] [id number] [facility] 2021-11-16 02:59:00 2021-11-16 02:59:00 [place] [id number] [facility] 2021-11-16 02:59:00 2021-11-16 02:59:00 [place]patient [place] [id number] [facility] 2021-11-16 00:00:00 2021-11-16 00:00:00 Jorge A Mckeon MD: [address] [place] [address], [address] [id number] , Ph. [facility] - Otolaryngol ogy-MOB [id number] [facility] 2021-10-07 07:18:10 2021-10-07 23:59:00 Outpatient CHARLY PONCE [facility] [id number] [facility] 2021-10-07 07:18:10 2021-10-07 23:59:00 Hospital Encounter Charly Navarrete [facility] [id number] 350.1.13.10 4.2.7.2.686 [id number] [facility] 2021-10-07 07:18:10 2021-10-07 23:59:00 Outpatient CHARLY PONCE [facility] [id number] [facility] 2021-10-07 00:00:00 2021-10-07 00:00:00 Outpatient CHARLY PONCE [facility] [id number] [facility] 2021-10-06 13:30:00 2021-10-06 13:30:00 Outpatient JIM BURRIS [facility] [id number] [facility] 2021-10-06 00:00:00 2021-10-06 00:00:00 Telephone Rigo Daniel [facility] 1.840.114 350.1.13.10 4.2.7.2.686 [id number] [facility] 2021-10-03 00:00:00 2021-10-03 00:00:00 Orders Only Doctor Unassigned, Dinosaur [facility] 1.2840.114 350.1.13.10 4.2.7.2.686 [id number] [facility] 2021-09-30 00:00:00 2021-09-30 00:00:00 Case Management [facility] 1.2840.114 350.1.13.10 4.2.7.2.686 [id number] [facility] 2021-09-29 16:12:50 2021-09-29 23:59:00 Hospital Encounter Rigo Daniel [facility] 1.840.114 350.1.13.10 4.2.7.2.686 [id number] [facility] 2021-09-29 16:00:00 2021-09-29 16:15:00 Animal Scientist Visit Lab, Ang - Twin LunaMaríaRigo penaloza [facility] [id number] 350.1.13.10 4.2.7.2.686 [id number] [facility] 2021-09-29 15:30:00 2021-09-29 15:38:36 Outpatient R RIGO DANIEL [facility] [id number] [facility] 2021-09-29 15:30:00 2021-09-29 15:38:36 Office Visit Rigo Daniel [facility] 1.2.840.114 350.1.13.10 4.2.7.2.686 [id number] [facility] 2021-09-29 15:30:00 2021-09-29 15:38:36 Outpatient [facility] [id number] [facility] 2021-09-08 00:00:00 2021-09-08 00:00:00 Telephone Rigo Daniel [facility] 1.2.840.114 350.1.13.10 4.2.7.2.686 [id number] [facility] 2021-07-07 08:07:31 2021-07-07 23:59:00 Outpatient CHARLY PONCE [facility] [id number] [facility] 2021-07-07 08:07:31 2021-07-07 23:59:00 Hospital Encounter Charly Navarrete [facility] 1..840.114 350.1.13.10 4.2.7.2.686 [id number] [facility] 2021-07-07 08:07:31 2021-07-07 23:59:00 Outpatient R CHARLY NAVARRETE [facility] [id number] [facility] 2021-05-23 09:00:00 2021-05-23 09:00:00 Outpatient R RIGO DANIEL [facility] [id number] [facility] 2021-05-23 08:36:23 2021-05-23 08:51:23 Nurse Visit 1, [facility] Infusion Nurse Rigo Daniel [facility] 1.2.114 350.1.13.10 4.2.7.2.686 [id number] [facility] 2021-05-23 00:00:00 2021-05-23 00:00:00 Orders Only Doctor Unassigned, Dinosaur [facility] [id number] 350.1.13.10 4.2.7.2.686 [id number] [facility] 2021-05-19 11:00:00 2021-05-19 11:00:00 Outpatient R RIGO DANIEL [facility] [id number] [facility] 2021-05-17 00:00:00 2021-05-17 00:00:00 Case Management Rigo Daniel [facility] Tushar?[facility] 1.84114 350.1.13.10 4.2.7.2.686 [id number] [facility] 2021-04-28 15:11:42 2021-04-28 15:26:42 Animal Scientist Visit Lab, Ang - Db Rigo Daniel [facility] Tushar?[facility] 1.284.114 350.1.13.10 4.2.7.2.686 [id number] [facility] 2021-04-28 14:49:23 2021-04-28 15:11:49 [facility] 1.2840.114 350.1.13.10 4.2.7.2.686 [id number] [facility] 2021-04-28 14:30:00 2021-04-28 14:30:00 Outpatient R RIGO DANIEL [facility] [id number] [facility] 2021-04-22 08:58:00 2021-04-22 11:02:00 Emergency Eric Carlin [facility] 1.0.114 350.1.13.10 4.2.7.2.686 [id number] [facility] 2021-04-06 07:18:05 2021-04-06 23:59:00 Hospital Encounter Charly Naavrrete [facility] 1..114 350.1.13.10 4.2.7.2.686 [id number] [facility] 2021-04-06 00:00:00 2021-04-06 00:00:00 Outpatient CHARLY PONCE [facility] [id number] [facility] 2021-03-21 07:55:00 2021-03-21 10:30:00 Outpatient C MAEGAN GUERA [facility] [id number] [facility] 2021-03-02 15:35:45 2021-03-02 16:23:10 Office Visit Rigo Daniel [facility] Office Building One 1..114 350.1.13.10 4.2.7.2.686 [id number] [facility] 2021-03-02 16:00:00 2021-03-02 16:00:00 Outpatient R RIGO DANIEL [facility] [id number] [facility] 2021-03-02 00:00:00 2021-03-02 00:00:00 Orders Only Doctor Unassigned, Dinosaur [facility] 1..114 350.1.13.10 4.2.7.2.686 [id number] [facility] 2021-03-01 11:20:00 2021-03-01 11:20:00 Outpatient KALANI ROBINS [facility] [id number] [facility] 2021-02-07 07:56:00 2021-02-07 10:40:00 Outpatient VIJAY WALTER [facility] [id number] [facility] 2021-02-07 00:00:00 2021-02-07 00:00:00 Orders Only Doctor Unassigned, Dinosaur [facility] 1.2.840.114 350.1.13.10 4.2.7.2.686 [id number] [id number] [facility] 2021-01-25 09:30:00 2021-01-25 09:30:00 Outpatient WEST OSPINA [facility] [id number] [facility] 2021-01-24 00:00:00 2021-01-24 00:00:00 Orders Only Doctor Unassigned, Dinosaur [facility] 1.2.840.114 350.1.13.10 4.2.7.2.686 [id number] [facility] 2021-01-21 08:37:32 2021-01-21 23:59:00 Hospital Encounter [place] [facility] 1.2.840.114 350.1.13.10 4.2.7.2.686 [id number] [facility] 2021-01-21 00:00:00 2021-01-21 00:00:00 Outpatient WEST OSPINA [facility] [id number] [facility] 2021-01-21 00:00:00 2021-01-21 00:00:00 Orders Only Doctor Unassigned, Dinosaur [facility] 1.2.840.114 350.1.13.10 4.2.7.2.686 [id number] [facility] 2021-01-20 00:00:00 2021-01-20 00:00:00 Orders Only Doctor Unassigned, Dinosaur [facility] 1.2.114 350.1.13.10 4.2.7.2.686 [id number] [id number] [facility] 2021-01-13 08:45:00 2021-01-13 08:45:00 Outpatient R VANESSA LUNA [facility] [id number] [facility] 2021-01-13 08:29:14 2021-01-13 08:44:14 Animal Scientist Visit Pob, Adc Lab Main Les Lunaliwillie [facility] Building 1.114 350.1.13.10 4.2.7.2.686 [id number] [facility] 2021-01-12 15:19:28 2021-01-12 17:13:51 [facility] 1.114 350.1.13.10 4.2.7.2.686 [id number] [facility] 2021-01-12 16:00:00 2021-01-12 16:00:00 Outpatient R VANESSA LUNA [facility] [id number] [facility] 2021-01-04 07:03:35 2021-01-04 23:59:00 Hospital Encounter Charly Navarrete [facility] 1.114 350.1.13.10 4.2.7.2.686 [id number] [facility] 2021-01-04 00:00:00 2021-01-04 00:00:00 Outpatient CHARLY PONCE [facility] [id number] [facility] 2021-01-03 00:00:00 2021-01-03 00:00:00 Orders Only Doctor Unassigned, Dinosaur [facility] 1.2114 350.1.13.10 4.2.7.2.686 [id number] [id number] [facility] 2021-01-03 00:00:00 2021-01-03 00:00:00 Telephone Rigo Daniel [facility] Office Building One 1..114 350.1.13.10 4.2.7.2.686 [id number] [facility] 2020-11-18 11:00:00 2020-11-18 11:00:00 Outpatient R POLINA DANIELNERI [facility] [id number] [facility] 2020-11-18 10:43:34 2020-11-18 10:58:34 Nurse Visit 1, [facility] Infusion Nurse Rigo Daniel [facility] 1..114 350.1.13.10 4.2.7.2.686 [id number] [facility] 2020-10-14 17:29:39 2020-10-14 17:49:39 Urgent Care Guera Cruz [facility] Office Building One 1.84.114 350.1.13.10 4.2.7.2.686 [id number] [facility] 2020-10-14 17:40:00 2020-10-14 17:40:00 Outpatient GUERA ALFARO [facility] [id number] [facility] 2020-10-07 07:57:55 2020-10-07 23:59:00 Hospital Encounter Charly Navarrete [facility] 1.114 350.1.13.10 4.2.7.2.686 [id number] [facility] 2020-10-07 00:00:00 2020-10-07 00:00:00 Outpatient CHARLY PONCE [facility] [id number] [facility] 2020-07-08 07:47:24 2020-07-08 23:59:[address] [facility] 1.0.114 350.1.13.10 4.2.7.2.686 [id number] [facility] 2020-07-08 00:00:00 2020-07-08 00:00:00 Outpatient SUSAN PINEDAFLORINDA [facility] [id number] [facility] 2020-07-08 00:00:00 2020-07-08 00:00:00 Outpatient R BOSESUSANFLORINDA [facility] [id number] [facility] 2020-05-21 09:00:00 2020-05-21 09:00:00 Outpatient R RIGO DANIEL [facility] [id number] [facility] 2020-05-21 08:33:16 2020-05-21 08:48:16 Nurse Visit 1, [facility] Infusion Nurse Rigo Daniel [facility] 1..114 350.1.13.10 4.2.7.2.686 [id number] [facility] 2020-05-21 00:00:00 2020-05-21 00:00:00 Orders Only Doctor Unassigned, Dinosaur [facility] 1.840.114 350.1.13.10 4.2.7.2.686 [id number] [facility] 2020-05-19 00:00:00 2020-05-19 00:00:00 Telephone Rigo Daniel [facility] 1..114 350.1.13.10 4.2.7.2.686 [id number] [facility] 2020-04-07 08:10:42 2020-04-07 23:59:[address] [facility] 1.0.114 350.1.13.10 4.2.7.2.686 [id number] [facility] 2020-04-07 00:00:00 2020-04-07 00:00:00 Outpatient R GIOVANNA BOSE [facility] [id number] [facility] 2020-02-17 08:10:10 2020-02-17 08:25:10 Animal Scientist Visit 2, Adc Lab María, Rigo [facility] Building 1.114 350.1.13.10 4.2.7.2.686 [id number] [facility] 2020-02-17 08:00:00 2020-02-17 08:00:00 Outpatient R MARÍA RIGO [facility] [id number] [facility] 2020-02-17 00:00:00 2020-02-17 00:00:00 Orders Only Doctor Unassigned, Dinosaur [facility] 1.114 350.1.13.10 4.2.7.2.686 [id number] [facility] 2020-01-21 00:00:00 2020-01-21 00:00:00 Telephone Rigo Daniel [facility] Office Building One 1.114 350.1.13.10 4.2.7.2.686 [id number] [facility] 2020-01-20 09:15:00 2020-01-20 09:15:00 Outpatient R WE[place] KAMINSKI [facility] [id number] [facility] 2020-01-20 07:51:12 2020-01-20 08:06:12 Telemedici ne Visit [place] [facility] 1.114 350.1.13.10 4.2.7.2.686 [id number] [facility] 2020-01-19 00:00:00 2020-01-19 00:00:00 Telephone Rigo Daniel [facility] Office Building One 1.114 350.1.13.10 4.2.7.2.686 [id number] [facility] 2020-01-18 00:00:00 2020-01-18 00:00:00 Case Management [facility] 1..840.114 350.1.13.10 4.2.7.2.686 [id number] [facility] 2020-01-16 08:19:54 2020-01-16 23:59:00 Outpatient R [facility] [id number] [facility] 2020-01-16 08:00:00 2020-01-16 23:59:00 [facility] 1.840.114 350.1.13.10 4.2.7.2.686 [id number] [facility] 2020-01-16 08:23:01 2020-01-16 08:38:01 Animal Scientist Visit Pob, Adc Lab Main Alysia Daniel [facility] Building 1.84.114 350.1.13.10 4.2.7.2.686 [id number] [facility] 2020-01-16 00:00:00 2020-01-16 00:00:00 Outpatient [facility] [id number] [facility] 2020-01-07 08:00:00 2020-01-07 23:59:00 Hospital Encounter Rory Cerrato [facility] 1.2840.114 350.1.13.10 4.2.7.2.686 [id number] [facility] 2020-01-07 00:00:00 2020-01-07 00:00:00 Outpatient RORY LEWIS [facility] [id number] [facility] 2019-11-20 08:06:15 2019-12-15 17:40:18 Telemedici ne Visit Rigo Daniel [facility] Office Building One 1..114 350.1.13.10 4.2.7.2.686 [id number] [facility] 2019-11-20 08:00:00 2019-11-20 08:00:00 Outpatient R RIGO DANIEL [facility] [id number] [facility] 2019-10-09 08:18:00 2019-10-09 23:59:00 Hospital Encounter Giovanna Bose [facility] 1..114 350.1.13.10 4.2.7.2.686 [id number] [facility] 2019-10-08 00:00:00 2019-10-08 00:00:[address] [facility] 1..114 350.1.13.10 4.2.7.2.686 [id number] [facility] 2019-05-22 07:44:23 2019-05-22 08:44:15 Office Visit Rigo Daniel [facility] Office Building One 1.114 350.1.13.10 4.2.7.2.686 [id number] [facility] 2019-05-22 00:00:00 2019-05-22 00:00:00 Orders Only Doctor Unassigned, Dinosaur [facility] 1.0.114 350.1.13.10 4.2.7.2.686 [id number] [facility] 2019-05-22 00:00:00 2019-05-22 00:00:00 Telephone Rigo Daniel [facility] Office Building One 1.114 350.1.13.10 4.2.7.2.686 [id number] [facility] 2019-04-09 08:22:55 2019-04-09 23:59:00 Hospital Encounter Giovanna Bose Jay Rojasrigoawildajoelle, [facility] 1.2.840.114 350.1.13.10 4.2.7.2.686 [id number] [facility] Results Test Description Test Time Test Comments Results Result Co mments Source [facility] ([id number])2022-09-24 18:46:33* Test Item Value Reference Range Interpretation Comme nts NA (test code = 4063795512) 141 mmol/L 135-145 K (test code = 9577869934) 4.2 mmol/L 3.5-5.0 CL (test code = 2352713265) 100 mmol/L 98-108 CO2 TOTAL (test code = 3138969557) 33 mmol/L 23-31 H AGAP (test code = 8121784119) 2-16 BUN (test code = 1497765883) 25 mg/dL 7-23 H GLUCOSE (test code = 8617472839) 97 mg/dL 70-110 CREATININE (test code = 2324291300) 0.53 mg/dL 0.50-1.04 TOTAL BILI (test code = 4810502173) 0.5 mg/dL 0.1-1.1 CALCIUM (test code = 9805308005) 9.5 mg/dL 8.6-10.6 T PROTEIN (test code = 0488139030) 7.5 g/dL 6.3-8.2 ALBUMIN (test code = 2095745430) 4.3 g/dL 3.5-5.0 ALK PHOS (test code = 0376097274) 82 U/L 34-122 ALTv (test code = 1742-6) 17 U/L 5-35 AST(SGOT) (test code = 2809254562) 43 U/L 13-40 H eGFR (test code = 0799881950) mL/min/1.73m2 NATAN (test code = NATAN) Association of Glomerular Filtration Rate (GFR) and Staging of Kidney Disease* + --+ --+ ------+| GFR (mL/min/1.73 m2) ?| With Kidney Damage ?| ?Without Kidney Damage+ --------+ --------+ +| ?>90 ?| ?Stage one ?| ? Normal ?+ ---+ ---+ -------+| ?60-89 ?| ?Stage two ?| ? Decreased GFR ? + --+ --+ ------+| ?30-59 ?| ?Stage three ?| ? Stage three ? + --+ --+ ------+| ?15-29 ?| ?Stage four ? | ? Stage four ?+ ---+ ---+ -------+| ?<15 (or dialysis) ? ?| ?Stage five ? | ? Stage five ?+ ---+ ---+ -------+ *Each stage assumes the associated GFR level has been in effect for at least three months. ?Stages 1 to 5, with or without kidney disease, indicate chronic kidney disease. Notes: Determination of stages one and two (with eGFR >59mL/min/1.73 m2) requires estimation of kidney damage for at least three months as defined by structural or functional abnormalities of the kidney, manifested by either:Pathological abnormalities or Markers of kidney damage (including abnormalities in the composition of the blood or urine or abnormalities in imaging tests). Lab Interpretation (test code = 60899-2) Abnormal [facility] [id number] 18:09:52* Test Item Value Reference Range Interpretation Comments TROPONIN I (test code = 7728900424) 0.016 ng/mL See_Comment [Automated message] The system which generated this result transmitted reference range: <=0.034. The reference range was not used to interpret this result as normal/abnormal. NATAN (test code = NATAN) Reference (Normal) Range (defined by the 99th percentile reference limit): <= 0.034 ng/mL Note: Cardiac troponin begins to rise 3-4 hours after the onset of ischemia. Repeat in 4-6 hours if the sample was drawn within 3-4 hours of the onset of the symptom and found normal. Diagnosis of myocardial injury is made with acute changes in cTn concentrations with at least one serial sample above the 99th percentile upper reference limit (URL), taken together with the patient's clinical presentation. Biotin has been reported to cause a negative bias, interpret results relative to patient's use of biotin. Lab Interpretation (test code = 95984-2) Normal [facility]2023-[facility] 17:58:31* Test Item Value Reference Range Interpretation Comme nts LIPASE (test code = 1961742571) 83 U/L 0-220 Lab Interpretation (test cod e = 59671-8) Normal [facility] WITH [id number] 17:47:50* Test Item Value Reference Range Interpretation Comme nts WBC (test code = 6690-2) See_Comment [Automated messa ge] The system which generated this result transmitted reference range: 4.30 - 11.10 10*3/?L. The reference range was not used to interpret this result as normal/abnormal. RBC (test code = 789-8) See_Comment [Automated messa ge] The system which generated this result transmitted reference range: 3.93 - 5.25 10*6/?L. The reference range was not used to interpret this result as normal/abnormal. HGB (test code = 718-7) 13.3 g/dL 11.6-15.0 HCT (test code = 4544-3) 40.9 % 35.7-45.2 MCV (test code = 787-2) 99.3 fL 80.6-95.5 H MCH (test code = 785-6) 32.3 pg 25.9-32.8 MCHC (test code = 786-4) 32.5 g/dL 31.6-35.1 RDW-SD (test code = 01885-4) 44.8 fL 39.0-49.9 RDW-CV (test code = 788-0) 12.0 % 12.0-15.5 PLT (test code = 777-3) See_Comment [Automated messa ge] The system which generated this result transmitted reference range: 166 - 358 10*3/?L. The reference range was not used to interpret this result as normal/abnormal. MPV (test code = 02097-4) 11.5 fL 9.5-12.9 NRBC/100 WBC (test code = 1539664106) See_Comment [Automated me ssage] The system which generated this result transmitted reference range: 0.0 - 10.0 /100 WBCs. The reference range was not used to interpret this result as normal/abnormal. NRBC x10^3 (test code = 8952530919) See_Comment [Automated messa ge] The system which generated this result transmitted reference range: 10*3/?L. The reference range was not used to interpret this result as normal/abnormal. GRAN MAT (NEUT) % (test code = 770-8) 63.3 % IMM GRAN % (test code = 2645306109) 0.50 % LYMPH % (test code = 736-9) 23.8 % MONO % (test code = 5905-5) 9.0 % EOS % (test code = 713-8) 2.9 % BASO % (test code = 706-2) 0.5 % GRAN MAT x10^3(ANC) (test code = 7745125279) 4.22 10*3/uL 1.88-7.09 IMM GRAN x10^3 (test code = 4428623544) 0.03 10*3/uL 0.00-0.06 LYMPH x10^3 (test code = 731-0) 1.58 10*3/uL 1.32-3.29 MONO x10^3 (test code = 742-7) 0.60 10*3/uL 0.33-0.92 EOS x10^3 (test code = 711-2) 0.19 10*3/uL 0.03-0.39 BASO x10^3 (test code = 704-7) 0.03 10*3/uL 0.01-0.07 Lab Interpretation (test code = 14242-7) Abnormal [facility] [id number] 09:38:[facility]
[2023-11-18] MEDS ORDERED: IPRATROPIUM BROM 0.5MG/2.5ML ONE (09:16)
[2023-11-18] MEDS ORDERED: ALBUTEROL 2.5 MG/3 ML NEB SOL ONE (09:16)
[2023-11-18 09:46] LABS: Absolute Basophils 0.1 K/uL (0-0.5); Absolute Eosinophils 0.1 K/uL (0-0.5); Absolute Lymphocytes (CBC) 1.3 K/uL (0.7-4.9); Absolute Neutrophil 10.2 K/uL (1.8-8.0); Basophils % 0.4 % (0-1.3); Eosinophils % 0.7 % (0-4.4); Hematocrit 37.7 % (36.0-45.0); Hemoglobin 12.8 g/dL (12.0-15.0); Lymphocytes % 10.1 % (15.3-44.8); MCH 32.1 pg (27.0-35.0); MCHC 33.9 g/dL (32.0-36.0); MCV 94.7 fL (80-100); MPV 9.3 fL (7.6-11.3); Monocytes % 7.7 % (3.3-12.3); Neutrophils % 81.1 % (41.7-73.7); Nucleated Red Blood Cells % 0.1 % (0-0); Platelets 336 thou/uL (152-406); RBC Red Blood Cell Count 3.98 M/uL (3.86-4.86); Red Cell Distribution Width 12.6 % (12.1-15.2)
[2023-11-18 09:49] LABS: PT Prothrombin Time 15.3 SECONDS (9.5-12.5); PTT, Activated Partial Thromb 30.5 SECONDS (24.3-36.9); Protime INR 1.4
[2023-11-18] MEDS ORDERED: HYDROCODONE/CHLORPHEN 5 ML/OSYR ONE (09:58)
[2023-11-18] MEDS ORDERED: Levofloxacin 750mg IV 750 MG/150 ML BAG IV ONE (10:02)
--- NOTE | 2023-11-18 10:04 | ER ---
Nurse's Notes [facility] Name: Kandy Rose Age: 73 yrs Sex: Female : 1950 Arrival Date: 11/18/2023 Time: 09:00 Bed 19 Private MD: Diagnosis: Lobar pneumonia, unspecified organism;Acute respiratory failure with hypoxia;Sepsis, unspecified organism;Hypokalemia Presentation: 11/17 09:05 Chief complaint: Patient states: SOB on and off x 2 weeks ago, pt also reports cough. aa5 09:05 Coronavirus screen: cough unrelated to allergies, shortness of breath. Ebola Screen: aa5 Patient denies travel to an Ebola-affected area in the 21 days before illness onset. Initial Sepsis Screen: Does the patient meet any 2 criteria? HR > 90 bpm. Does the patient have a suspected source of infection? No. Patient's initial sepsis screen is negative. Risk Assessment: Do you want to hurt yourself or someone else? Patient reports no desire to harm self or others. Onset of symptoms was November 2023. 09:05 Acuity: BERYL 2 aa5 09:05 Method Of Arrival: Ambulatory aa5 Historical: - Allergies: 09:18 No Known Allergies; kc6 - PMHx: 09:12 Neck CA; Hearing aids (feeding tube); Swallowing problem (feeding tube); aa5 - PSHx: 09:12 feeding tube; aa5 - Immunization history:: Adult Immunizations up to date. - Social history:: Smoking status: Patient denies any tobacco usage or history of. Screenin:11 [facility] ED Fall Risk Assessment (Adult) History of falling in the last 3 months, kc6 including since admission No falls in past 3 months (0 pts) Confusion or Disorientation No (0 pts) Intoxicated or Sedated No (0 pts) Impaired Gait No (0 pts) Mobility Assist Device Used No (0 pt) Altered Elimination No (0 pt) Score/Fall Risk Level 0 - 2 = Low Risk. Abuse screen: Denies threats or abuse. Denies injuries from another. Nutritional screening: No deficits noted. Tuberculosis screening: No symptoms or risk factors identified. Assessment: 09:11 General: Appears in no apparent distress. comfortable, well groomed, well developed, kc6 Behavior is calm, cooperative, appropriate for age, quiet. Pain: Denies pain. Neuro: Level of Consciousness is awake, alert, obeys commands, Oriented to person, place, time, situation, Appropriate for age. Cardiovascular: Denies chest pain, Heart tones S1 S2 present Capillary refill < 3 seconds Rhythm is sinus rhythm. Respiratory: Reports cough that is productive, Airway is patent Trachea midline Respiratory effort is even, unlabored, Respiratory pattern is regular, symmetrical, Breath sounds are coarse bilaterally. GI: No signs and/or symptoms were reported involving the gastrointestinal system. Abdomen is flat, non-distended, PEG tube in place, clamped. Site clean. Bowel sounds present X 4 quads. Abd is soft and non tender X 4 quads. Patient currently denies abdominal pain, diarrhea, nausea, vomiting. : No signs and/or symptoms were reported regarding the genitourinary system. EENT: No signs and/or symptoms were reported regarding the EENT system. Derm: No signs and/or symptoms reported regarding the dermatologic system. Skin is intact, is healthy with good turgor, Skin is pink, warm \T\ dry. Musculoskeletal: No signs and/or symptoms reported regarding the musculoskeletal system. Circulation, motion, and sensation intact. Capillary refill < 3 seconds, Range of motion: intact in all extremities. 10:28 Reassessment: Patient appears in no apparent distress at this time. No changes from kc6 previously documented assessment. Patient and/or family updated on plan of care and expected duration. Pain level reassessed. Patient is alert, oriented x 3, equal unlabored respirations, skin warm/dry/pink. Patient denies pain at this time. 11:11 Reassessment: Patient appears in no apparent distress at this time. No changes from kc6 previously documented assessment. Patient and/or family updated on plan of care and expected duration. Pain level reassessed. Patient is alert, oriented x 3, equal unlabored respirations, skin warm/dry/pink. Patient denies pain at this time. Patient states feeling better. Patient states symptoms have improved. 11:49 Reassessment: Patient appears in no apparent distress at this time. No changes from kc6 previously documented assessment. Patient and/or family updated on plan of care and expected duration. Pain level reassessed. Patient is alert, oriented x 3, equal unlabored respirations, skin warm/dry/pink. Vital Signs: 09:05 BP 130 / 77; Pulse 102; Resp 20 S; Temp 98.3(TE); Pulse Ox 89% on R/A; Weight 45.36 kg kc6 (R); Height 5 ft. 0 in. (R); 09:07 Pulse Ox 95% on 2 lpm NC; aa5 09:51 BP 131 / 74; Pulse 99; Resp 30 S; Pulse Ox 95% on 2 lpm NC; kc6 10:28 BP 155 / 86; Pulse 107; Resp 17 S; Pulse Ox 95% on 2 lpm NC; kc6 11:11 BP 121 / 71; Pulse 87; Resp 22 S; Pulse Ox 96% on 2 lpm NC; kc6 11:49 BP 125 / 76; Pulse 90; Resp 19 S; Pulse Ox 98% on 2 lpm NC; kc6 09:05 Body Mass Index 19.53 (45.36 kg, 152.4 cm) kc6 ED Course: 09:02 Patient arrived in ED. mg5 09:04 Brissa Bardales PA-C [facility]. sb4 09:04 Yamini Kee MD is Attending Physician. sb4 09:05 Zohreh Wesley, PITA is Primary Nurse. kc6 09:05 Arm band placed on. aa5 09:11 Patient has correct armband on for positive identification. Bed in low position. Call kc6 light in reach. Side rails up X2. Client placed on continuous cardiac and pulse oximetry monitoring. NIBP monitoring applied. monitoring specialist on. 09:15 Triage completed. aa5 09:21 COVID-19/FLU A+B/RSV Sent. kc6 09:31 EKG done, by ED staff, reviewed by Brissa Bardales PA-C. ds4 09:38 Inserted saline lock: 20 gauge in right antecubital area, using aseptic technique. kc6 Blood collected. Oxygen administration via nasal cannula \T\ 2L/min. 10:03 Jose A Marquez MD is Hospitalizing Provider. sb4 10:19 Chest Single View XRAY In Process Unspecified. EDMS 12:16 No provider procedures requiring assistance completed. Patient admitted, IV remains in kc6 place. Administered Medications: 09:21 Drug: DuoNeb Nebulize (3:1) (2.5 mg - 0.5 mg) 3 ml Nebulizer once Route: Nebulizer; kc6 09:58 Follow up: Response: No adverse reaction kc6 10:01 Drug: Tussionex Pennkinetic ER PO Suspension 5 ml PO once Route: PO; kc6 10:39 Follow up: Response: No adverse reaction; RASS: Alert and Calm (0) kc6 10:06 Drug: levofloxacin IVPB 750 mg 150 ml IVPB once over 90 mins Volume: 150 ml; Route: kc6 IVPB; Infused Over: 90 mins; Site: right antecubital; 11:49 Follow up: Response: No adverse reaction; IV Status: Completed infusion; IV Intake: kc6 150ml 10:15 Drug: NS 0.9% IV 1000 ml IV at 1 bolus Per protocol; 1000 mL bolus Route: IV; Rate: 1 kc6 bolus; Site: right antecubital; 12:55 Follow up: Response: No adverse reaction; IV Status: Completed infusion; IV Intake: kc6 1000ml 10:15 Drug: Potassium Chloride IV 20 mEq IV at calculated rate once; administer over 1-2 kc6 hours Route: IV; Rate: calculated rate; Site: right antecubital; 12:55 Follow up: Response: No adverse reaction; IV Status: Completed infusion; IV Intake: kc6 100ml Medication: 12:16 VIS not applicable for this client. kc6 Intake: 11:49 IV: 150ml; Total: 150ml. kc6 12:55 IV: 1000ml; Total: 1150ml. kc6 12:55 IV: 100ml; Total: 1250ml. kc6 Outcome: 10:04 Decision to Hospitalize by Provider. sb4 12:16 Admitted to ER Hold. Please see [facility] for further documentation. kc6 12:16 Condition: good 12:16 Instructed on the need for admit, 18:34 Patient left the ED. kc6 Signatures: Dispatcher [employer] EDMS Lyric Thrasher RN RN [id number] Yayo Singh4 Zohreh Wesley RN RN kc6 Brissa Bardales PA-C PA-C sb4 Toma Hensley mg5 Corrections: (The following items were deleted from the chart) 09:18 09:05 BP 130 / 77; Pulse 102bpm; Resp 20bpm; Spontaneous; Pulse Ox 89% RA; 45.36 kg kc6 Reported; Height 5 ft. 0 in. Reported; BMI: 19.5; aa5 09:11 Cardiovascular: Denies chest pain, Heart tones S1 S2 present Capillary refill < 3 kc6 seconds kc6 : GI: No signs and/or symptoms were reported involving the gastrointestinal system. kc6 kc6
--- NOTE | 2023-11-18 10:04 | EDPHYS ---
Physician Documentation [facility] Name: Kandy Rose Age: 73 yrs Sex: Female : 1950 Arrival Date: 11/18/2023 Time: 09:00 Bed 19 Private MD: ED Physician Yamini Kee HPI: 11/17 09:13 This 73 yrs old Female presents to ER via Unassigned with complaints of Breathing sb4 Difficulty, Cough. 09:13 Patient reports 2 weeks of shortness of breath and cough. She has a history of throat sb4 cancer and dysphagia, therefore does occasionally aspirate and gets pneumonia. Her and her daughter feel that this is a similar occurrence. She denies any known fevers or chills. In no acute distress upon arrival, however was saturating 89% on room air and placed on supplemental oxygen. Historical: - Allergies: :18 No Known Allergies; kc6 - PMHx: 09:12 Neck CA; Hearing aids (feeding tube); Swallowing problem (feeding tube); aa5 - PSHx: 09:12 feeding tube; aa5 - Immunization history:: Adult Immunizations up to date. - Social history:: Smoking status: Patient denies any tobacco usage or history of. ROS: 09:13 Constitutional: Negative for fever, chills, and weight loss, sb4 09:13 Respiratory: Positive for cough, dyspnea on exertion, shortness of breath, 09:13 All other systems are negative, Exam: 09:13 Constitutional: This is a well developed, well nourished patient who is awake, alert, sb4 and in no acute distress. Head/Face: Normocephalic, atraumatic. Eyes: Extra-ocular motions intact. Periorbital areas with no swelling, redness, or edema. ENT: Mucous membranes moist. Cardiovascular: Regular rate and rhythm with a normal S1 and S2. Abdomen/GI: Soft, non-tender, no distension. Skin: Warm, dry with normal turgor. Normal color with no rashes, no lesions, and no evidence of cellulitis. MS/ Extremity: Pulses equal, no cyanosis. Neurovascular intact. Full, normal range of motion. Neuro: Awake and alert, GCS 15, oriented to person, place, time, and situation. Motor strength 5/5 in all extremities. Sensory grossly intact. 09:13 Respiratory: the patient does not display signs of respiratory distress, Respirations: normal, Breath sounds: decreased breath sounds, that are mild, are heard in the left posterior lower lobe, Vital Signs: 09:05 BP 130 / 77; Pulse 102; Resp 20 S; Temp 98.3(TE); Pulse Ox 89% on R/A; Weight 45.36 kg kc6 (R); Height 5 ft. 0 in. (R); 09:07 Pulse Ox 95% on 2 lpm NC; aa5 09:51 BP 131 / 74; Pulse 99; Resp 30 S; Pulse Ox 95% on 2 lpm NC; kc6 10:28 BP 155 / 86; Pulse 107; Resp 17 S; Pulse Ox 95% on 2 lpm NC; kc6 11:11 BP 121 / 71; Pulse 87; Resp 22 S; Pulse Ox 96% on 2 lpm NC; kc6 11:49 BP 125 / 76; Pulse 90; Resp 19 S; Pulse Ox 98% on 2 lpm NC; kc6 09:05 Body Mass Index 19.53 (45.36 kg, 152.4 cm) [facility] MDM: 09:05 Patient medically screened. sb4 09:13 Differential diagnosis: Bronchitis Chronic Obstructive Pulmonary Disease pneumonia. sb4 09:59 Independent interpretation of the following test(s) in the Emergency Department X-Ray: sb4 My interpretation is my interpretation of the chest xray images are left lower lobe consolidation, suggestive of pneumonia. 10:02 Antibiotic administration: Levaquin given. Data interpreted: Pulse oximetry: on 2L(s) sb4 per nasal canula, is 95 %. Interpretation: acceptable. Data reviewed: vital signs, nurses notes, lab test result(s), EKG, radiologic studies, and as a result, I will admit patient. Consideration of Admission/Observation Patient was admitted/placed on observation. Historians other than the Patient: Daughter/Son: daughter. Counseling: I had a detailed discussion with the patient and/or guardian regarding the historical points, exam findings, and any diagnostic results supporting the discharge/admit diagnosis, lab results, radiology results, the need for further work-up and treatment in the hospital. 10:06 ED course: CURB65 score of 3. sb4 11/17 09:12 Order name: Blood Culture Adult (2) sb4 11/17 09:12 Order name: CBC with Diff; Complete Time: 09:51 sb11/17 09:12 Order name: CMP; Complete Time: 10:05 11/17 09:12 Order name: Lactate w/ 2H reflex if indic.; Complete Time: 10:04 11/17 09:12 Order name: Protime (+inr); Complete Time: 09:51 11/17 09:12 Order name: Ptt, Activated; Complete Time: 09:51 11/17 09:12 Order name: COVID-19/FLU A+B/RSV; Complete Time: 10:07 11/17 09:12 Order name: Chest Single View XRAY; Complete Time: 11:30 11/17 09:12 Order name: EKG; Complete Time: 09:13 11/17 09:12 Order name: Accucheck; Complete Time: 09:38 11/17 09:12 Order name: Cardiac monitoring; Complete Time: 09:21 11/17 09:12 Order name: EKG - Nurse/Tech; Complete Time: 09:21 11/17 09:12 Order name: IV Saline Lock - Large Bore; Complete Time: 09:38 11/17 09:12 Order name: Labs collected and sent; Complete Time: 09:38 11/17 09:12 Order name: O2 Per Protocol; Complete Time: 09:13 11/17 09:12 Order name: O2 Sat Monitoring; Complete Time: 09:13 11/17 09:12 Order name: Vital Signs; Complete Time: 09:13 sb4 EC:31 Rate is 89 beats/min. Rhythm is regular, Normal Sinus Rhythm. MT interval is normal at sb4 140 msec. QRS interval is normal at 70 msec. QT interval is normal at 352 msec. No Q waves. T waves are Normal. No ST changes noted. Clinical impression: Normal ECG and No evidence of ischemia. Interpreted by me. Reviewed by me. Administered Medications: 09:21 Drug: DuoNeb Nebulize (3:1) (2.5 mg - 0.5 mg) 3 ml Nebulizer once Route: Nebulizer; kc6 09:58 Follow up: Response: No adverse reaction kc6 10:01 Drug: Tussionex Pennkinetic ER PO Suspension 5 ml PO once Route: PO; kc6 10:39 Follow up: Response: No adverse reaction; RASS: Alert and Calm (0) kc6 10:06 Drug: levofloxacin IVPB 750 mg 150 ml IVPB once over 90 mins Volume: 150 ml; Route: kc6 IVPB; Infused Over: 90 mins; Site: right antecubital; 11:49 Follow up: Response: No adverse reaction; IV Status: Completed infusion; IV Intake: kc6 150ml 10:15 Drug: NS 0.9% IV 1000 ml IV at 1 bolus Per protocol; 1000 mL bolus Route: IV; Rate: 1 kc6 bolus; Site: right antecubital; 12:55 Follow up: Response: No adverse reaction; IV Status: Completed infusion; IV Intake: kc6 1000ml 10:15 Drug: Potassium Chloride IV 20 mEq IV at calculated rate once; administer over 1-2 kc6 hours Route: IV; Rate: calculated rate; Site: right antecubital; 12:55 Follow up: Response: No adverse reaction; IV Status: Completed infusion; IV Intake: kc6 100ml Disposition: 12:07 Co-signature as Attending Physician, Yamini Kee MD I agree with the assessment and cp3 plan of care. Disposition Summary: 11/18/23 10:04 Hospitalization Ordered Notes: Hospitalization Status: Inpatient Admission sb4 Provider: Jose A Marquez sb4 Condition: Fair sb4 Problem: new sb4 Symptoms: are unchanged sb4 Bed/Room Type: Standard sb4 Location: Telemetry/MedSur (Inpatient)(11/18/23 17:27) ds4 Room Assignment: [facility](11/18/23 18:05) ja1 Diagnosis - Lobar pneumonia, unspecified organism sb4 - Acute respiratory failure with hypoxia sb4 - Sepsis, unspecified organism sb4 - Hypokalemia sb4 Forms: - Medication Reconciliation Form sb4 - SBAR form sb4 - Leadership Thank You Letter sb4 Signatures: Dispatcher [employer] Yamini Soto MD MD cp3 Lyric Thrasher RN RN [id number] Yayo Singh ds4 Kulwant Sullivan RN RN ja1 Zohreh Wesley RN RN [email or web address] Brissa Bardales, PA-C PA-C sb4 Corrections: (The following items were deleted from the chart) 10:04 10:04 Acute and chronic respiratory failure with hypoxia sb4 sb4 10:10 09:13 Respiratory: the patient does not display signs of respiratory distress, sb4 Respirations: normal, Breath sounds: decreased breath sounds, that are mild, are located in both bases, sb4 12:12 10:04 Telemetry/MedSurg (Inpatient) sb4 aa5 12:12 10:04 sb4 aa5 17:27 12:12 [facility] ER HOLD aa5 ds4 17:27 12:12 ERHOLD- aa5 ds4 18:05 17:27 421 ds4 ja1
[2023-11-18 10:05] LABS: Albumin/Globulin Ratio 0.7 (1.1-1.8); Anion Gap 8.9 mEq/L (5.0-15.0); Bilirubin Total 0.3 mg/dL (0.2-1.0); Globulin 4.6 g/dL (2.3-3.5); Potassium 2.9 mEq/L (3.5-5.1); Protein, Total 7.6 g/dL (6.4-8.2)
[2023-11-18 10:06] LABS: INFLUENZA A NAA NEGATIVE (NEGATIVE); RESPIRATORY SYNCYTIAL VIR NAA NEGATIVE (NEGATIVE); SARS-COV-2 RT PCR NEGATIVE (NEGATIVE)
[2023-11-18] MEDS ORDERED: KCL 20 MEQ/100 mL IVPB 100 ML IV ONE (10:10)
[2023-11-18] MEDS ORDERED: NA CHLORIDE 0.9% 1,000 ML ONE ×2 (10:10→12:56)
--- NOTE | 2023-11-18 10:50 | P.HP ---
Certification for Inpatient Patient admitted to: Inpatient With expected LOS: >2 Midnights Patient will require the following post-hospital care: None Practitioner: I am a practitioner with admitting privileges, knowledge of patient current condition, hospital course, and medical plan of care. Services: Services provided to patient in accordance with Admission requirements found in Title 42 Section 412.3 of the Code of Federal Regulations Patient History Date of Service: 11/18/23 Reason for admission: Sepsis, pneumonia History of Present Illness: 73-year-old female with history of neck cancer status post chemo/radiation now with PEG tube for dysphagia presents emergency department chief complaint of progressive shortness of breath over the course of the last 2 weeks and cough for 1 week. She does report she has previous episodes of aspiration pneumonia, denies any knowledge of any particular event recently. She was evaluated in the emergency department labs are significant for white blood cell 12.5 potassium 2.9 lactic acid 1.4 she was tachycardic rate around 110. Chest x-ray with suspected left-sided pneumonia, ED provider wishes to admit for further valuation management of sepsis, pneumonia, hypoxic respiratory failure. Allergies No Known Allergies Allergy (Unverified 01/03/22 23:32) Home Medications: Albuterol Inhaler [Ventolin Inhaler*] 2 puff IH Q6H PRN #1 hfa.aer.ad 01/05/22 levoFLOXacin [Levaquin*] 500 mg PO DAILY #7 tab 01/05/22 predniSONE [Prednisone*] 20 mg PO BID #11 tab 01/05/22 - Past Medical/Surgical History Diabetic: No -: Neck Cancer -: PEG -: Cholecystectomy -: Cataracts -: Hysterectomy Psychosocial/ Personal History: Patient lives at home with her son. - Family History Father Notes: no medical issues Mother -: Lung disease Notes: emphysema - Social History Alcohol use: No CD- Drugs: No Caffeine use: No Place of Residence: Home Review of Systems 10-point ROS is otherwise unremarkable Respiratory: Cough, Shortness of Breath Physical Examination - Physical Exam General: Alert, In no apparent distress, Oriented x3 HEENT: Atraumatic, PERRLA, Mucous membr. moist/pink Neck: Supple, 2+ carotid pulse no bruit, No LAD Respiratory: Diminished Cardiovascular: Regular rate/rhythm, Normal S1 S2 Gastrointestinal: Normal bowel sounds, No tenderness, Other (PEG tube in place) Musculoskeletal: No tenderness Integumentary: No rashes Neurological: Normal speech, Normal strength at 5/5 x4 extr, Normal tone, Normal affect - Studies Laboratory Data (last 24 hrs) 11/18/23 11/18/23 11/18/23 09:20 09:20 09:20 WBC 12.50 H Hgb 12.8 Hct 37.7 Plt Count 336 PT 15.3 H INR 1.40 APTT 30.5 Sodium 139 Potassium 2.9 L BUN 21 H Creatinine 0.90 Glucose 162 H Total Bilirubin 0.3 AST 15 ALT 12 L Alkaline Phosphatase 82 Assessment and Plan - Plan Assessment: Sepsis secondary to left basilar pneumonia Acute hypoxic respiratory failure secondary to above Hypokalemia Dysphagia with PEG tube in place History of neck cancer-1998 Plan: Sepsis secondary to left basilar pneumonia Acute hypoxic respiratory failure secondary to above Continue antibiotics/Levaquin Blood cultures obtained the ED SIRS criteria present, lactate less than 2 Pulmonology consulted Wean O2 as tolerated Hypokalemia Replaced in ED, protocol in place Dysphagia with PEG tube in place History of neck cancer-1998 Has had PEG tube for the last 5 years Uses Nutren 2.08 ounces 3 times daily at home Will continue Does take thin/liquids by mouth Speech therapy to evaluate for possible aspiration of thin liquids DVT PPX:Lovenox Code status:DNR Discharge Plan: Home Plan to discharge in: 72 Hours - Advance Directives Does patient have a Living Will: No Does patient have a Durable POA for Healthcare: No - Code Status/Comfort Care Code Status Assessed: Yes (DNR) Critical Care: No Time Spent Managing Pts Care (In Minutes): 70
--- NOTE | 2023-11-18 11:30 | RAD REPORT ---
[facility] DES[facility] 10:17 am CLINICAL HISTORY: DYSPNEA COMPARISON: Chest Pa And Lat (2 Views) dated 09/20/2022; Chest Pa And Lat (2 Views) dated 01/11/2022; Chest Pa And Lat (2 Views) dated 01/04/2022; Chest Pa And Lat (2 Views) dated 01/03/2022 TECHNIQUE: Portable AP view of the chest. FINDINGS: Diffuse hyperlucency indication suggesting COPD. Patchy left basilar airspace opacities. No pneumothorax or effusion. The cardiomediastinal contours are unremarkable. IMPRESSION: Patchy left basilar airspace opacities concerning for pneumonia.
[2023-11-18] MEDS ORDERED: ACETAMINOPHEN 325 MG TABLET PO PRN (12:17)
[2023-11-18] MEDS ORDERED: GUAIFENESIN/CODEINE 5ML UCUP PO PRN (12:17)
[2023-11-18] MEDS ORDERED: ALBUTEROL 2.5 MG/3 ML NEB SOL NEB PRN (12:17)
[2023-11-18] MEDS ORDERED: ONDANSETRON 4 MG/2 ML VIAL IV PRN (12:17)
[2023-11-18] MEDS: NA CHLORIDE 0.9% 1,000 ML IV SCH (12:42)
[2023-11-18] MEDS ORDERED: ACETAMINOPHEN 325 MG TABLET FT PRN (12:44)
[2023-11-18 12:48] VITALS: BMI 19.3
[2023-11-18] MEDS: NUTRITIONAL SUPPLEMENT FT SCH (12:53)
[2023-11-18] MEDS ORDERED: ENOXAPARIN 40 MG/0.4 ML SQ ONE (12:56)
[2023-11-18] MEDS: ENOXAPARIN 40 MG/0.4 ML SQ SCH (13:00)
[2023-11-19 04:10] LABS: Absolute Eosinophils 0.1 K/uL (0-0.5); Absolute Lymphocytes (CBC) 1.9 K/uL (0.7-4.9); Absolute Monocytes 1.2 K/uL (0.1-1.3); Absolute Neutrophil 11.7 K/uL (1.8-8.0); Basophils % 0.3 % (0-1.3); Eosinophils % 0.5 % (0-4.4); Hematocrit 32.7 % (36.0-45.0); Hemoglobin 11.3 g/dL (12.0-15.0); Lymphocytes % 12.7 % (15.3-44.8); MCH 32.6 pg (27.0-35.0); MCHC 34.5 g/dL (32.0-36.0); MCV 94.6 fL (80-100); MPV 9.7 fL (7.6-11.3); Monocytes % 7.9 % (3.3-12.3); Neutrophils % 78.6 % (41.7-73.7); Platelets 260 thou/uL (152-406); RBC Red Blood Cell Count 3.46 M/uL (3.86-4.86); Red Cell Distribution Width 12.7 % (12.1-15.2)
[2023-11-19 04:17] LABS: Anion Gap 7.3 mEq/L (5.0-15.0); Potassium 3.3 mEq/L (3.5-5.1)
[2023-11-19] MEDS: POTASSIUM 25 MEQ EFFERV TAB PO ONE ×2 (08:08→20:09)
[2023-11-19] MEDS ORDERED: POTASSIUM CL SA 10 MEQ TAB PO ONE (09:00)
[2023-11-19] MEDS ORDERED: ALBUTEROL 2.5 MG/3 ML NEB SOL ONE (09:13)
[2023-11-19] MEDS: ALBUTEROL 2.5 MG/3 ML NEB SOL NEB SCH (09:22)
[2023-11-19] MEDS: DOXYCYCLINE 100 MG CAP PO SCH (09:23)
[2023-11-19] MEDS: AMOX/K CLAV 500 MG TAB PO SCH (09:23)
[2023-11-19] MEDS ORDERED: ALBUTEROL 2.5 MG/3 ML NEB SOL NEB SCH (11:00)
--- NOTE | 2023-11-19 12:49 | P.CNS ---
Date of Consult: 11/19/23 Reason for Consult: Pneumonia Chief Complaint: Sepsis, pneumonia History of Present Illness: Patient is 73 years of age had a history of head and neck cancer has a PEG tube neck cancer was treated about 15 years ago for the past 2 weeks complaining of cough congestion shortness of breath. With elevated white count and possible pneumonia No prior history of obstructive airways disease does not smoke Allergies No Known Allergies Allergy (Unverified 01/03/22 23:32) Home Medications: Albuterol Inhaler [Ventolin Inhaler*] 2 puff IH Q6H PRN #1 hfa.aer.ad 01/05/22 levoFLOXacin [Levaquin*] 500 mg PO DAILY #7 tab 01/05/22 predniSONE [Prednisone*] 20 mg PO BID #11 tab 01/05/22 - Past Medical/Surgical History Diabetic: No -: Neck Cancer -: PEG -: Cholecystectomy -: Cataracts -: Hysterectomy Psychosocial/ Personal History: Patient lives at home with her son. - Family History Father Notes: no medical issues Mother Medical History: Lung disease Notes: emphysema - Social History Alcohol use: No CD- Drugs: No Caffeine use: No Place of Residence: Home Review of Systems 10-point ROS is otherwise unremarkable General: Weakness Respiratory: Cough, Shortness of Breath Physical Examination Temp Pulse Resp BP Pulse Ox 98.7 F 89 24 H 150/84 H 92 11/19/23 08:00 11/19/23 08:00 11/19/23 08:00 11/19/23 08:00 11/19/23 08:00 General: Alert, In no apparent distress, Oriented x3 Respiratory: Clear to auscultation bilaterally, Diminished Cardiovascular: No edema, Regular rate/rhythm, Normal S1 S2 Gastrointestinal: Normal bowel sounds, Soft and benign, Non-distended - Problems (1) Pneumonia Current Visit: No Status: Acute Plan: Patient is 73 years of age has been sick for the past 2 weeks history of PEG tube history of head and neck cancer labs shows mild hypokalemia patient's white count was elevated chest x-ray possible left lower lobe pneumonia patient is doing well changed to doxycycline and Augmentin via the PEG tube evaluate for discharge Qualifiers: Aspiration pneumonia type: unspecified Laterality: right Lung location: unspecified part of lung
[2023-11-19] MEDS: HYDRALAZINE HCL 20 MG/ML VIAL IV PRN (13:13)
--- NOTE | 2023-11-19 14:23 | EKG ---
Test Date: 2023-11-19 Test Time: 13:14:25 [employer] Inspector: TEJAS MEASUREMENT RESULTS: Intervals: Rate: 107 NC: 142 QRSD: 68 QT: 332 QTc: 443 [place]: P: 59 NC: 142 QRS: 74 T: 63 INTERPRETIVE STATEMENTS: Sinus tachycardia Otherwise normal ECG Compared to ECG 11/18/2023 09:07:39 Sinus rhythm no longer present Electronically Signed On 11-19-23 14:23:27 CDT by Rian Calix
--- NOTE | 2023-11-19 14:24 | EKG ---
Test Date: 2023-11-18 Test Time: 09:07:39 Assistant Housekeeping Manager: ROGERIO MEASUREMENT RESULTS: Intervals: Rate: 89 CO: 140 QRSD: 70 QT: 352 QTc: 428 [place]: P: 66 CO: 140 QRS: 79 T: 70 INTERPRETIVE STATEMENTS: Normal sinus rhythm Normal ECG Compared to ECG 01/03/2022 18:32:02 No significant changes Electronically Signed On 11-19-23 14:23:46 CDT by Rian Calix
--- NOTE | 2023-11-19 15:04 | P.PN ---
Date of Service: 11/19/23 Subjective: Still with dyspnea, wheezing On nasal cannula 1-2 LPM still on tube feeds ROS: 10 point ROS as noted above, otherwise negative Physical exam GEN: Alert, oriented, NAD HEENT: Normal conjunctiva, sclera anicteric CV: Regular rate and rhythm, no edema Pulm: Nonlabored respirations on nasal cannula, mild ext wheezing ABD: Soft, nontender, nondistended MSK: No joint tenderness Integumentary: No rashes Neuro: Normal speech, normal affect Vitals reviewed Assessment: Sepsis secondary to left basilar pneumonia Acute hypoxic respiratory failure secondary to above Hypokalemia Dysphagia with PEG tube in place History of neck cancer-1998 Plan: Sepsis secondary to left basilar pneumonia Acute hypoxic respiratory failure secondary to above Continue antibiotics/Levaquin Blood cultures obtained the ED-NGTD SIRS criteria present, lactate less than 2 Pulmonology consulted Wean O2 as tolerated Hypokalemia Replaced in ED, protocol in place Dysphagia with PEG tube in place History of neck cancer-1998 Has had PEG tube for the last 5 years Uses Nutren 2.0-8 ounces 3 times daily at home Will continue Does take thin/liquids by mouth Speech therapy to evaluate for possible aspiration of thin liquids DVT PPX:Lovenox Code status:DNR Discharge Plan: Home Plan to discharge in: 72 Hours Time Spent Managing Pts Care (In Minutes): 35
[2023-11-19] MEDS ORDERED: ALBUTEROL 2.5 MG/3 ML NEB SOL NEB PRN (15:39)
[2023-11-19] MEDS: METHYLPREDNISOLONE 125 MG INJ IV ONE (16:20)
[2023-11-19] MEDS: LEVALBUTEROL 0.63 MG/3 ML NEB NEB SCH (20:11)
[2023-11-20 07:02] LABS: Absolute Basophils 0.1 K/uL (0-0.5); Absolute Lymphocytes (CBC) 0.5 K/uL (0.7-4.9); Absolute Monocytes 0.3 K/uL (0.1-1.3); Basophils % 0.6 % (0-1.3); Eosinophils % 0.2 % (0-4.4); Hemoglobin 11.9 g/dL (12.0-15.0); Lymphocytes % 2.9 % (15.3-44.8); MCH 32.6 pg (27.0-35.0); MCV 95.7 fL (80-100); MPV 9.4 fL (7.6-11.3); Monocytes % 1.3 % (3.3-12.3); Platelets 312 thou/uL (152-406); RBC Red Blood Cell Count 3.66 M/uL (3.86-4.86); Red Cell Distribution Width 13.2 % (12.1-15.2)
[2023-11-20 07:19] LABS: Anion Gap 6.5 mEq/L (5.0-15.0); Potassium 3.5 mEq/L (3.5-5.1)
[2023-11-20] MEDS: Levofloxacin 750mg IV 750 MG/150 ML BAG IV SCH (07:43)
[2023-11-20] MEDS: predniSONE 10 MG TAB FT SCH (07:44)
[2023-11-20 08:33] LABS: Blood Morphology Comment NOT SEEN (NOT SEEN); Platelet Estimate ADEQ; White Blood Cell Scan OK (OK)
[2023-11-20] MEDS ORDERED: Levofloxacin 750mg IV 750 MG/150 ML BAG IV SCH (09:00)
[2023-11-20] MEDS: POTASSIUM 25 MEQ EFFERV TAB PO ONE (10:49)
--- NOTE | 2023-11-20 16:11 | P.CNS ---
Date of Consult: 11/20/23 Reason for Consult: pneumonia, sepsis Requesting Physician: tayo rea Chief Complaint: Sepsis, pneumonia History of Present Illness: Patient is a 73-year-old female with history of neck cancer status post chemo/radiation now with PEG tube for dysphagia who presented to the ED with complaints of shortness of breath worsening of the past 2 weeks and cough. Chest x-ray with suspected left-sided pneumonia. Patient was admitted for further evaluation management of sepsis, pneumonia, hypoxic respiratory failure. Infectious disease consulted for outpatient antibiotic recommendations. Allergies No Known Allergies Allergy (Unverified 01/03/22 23:32) Home medications list reviewed: Yes Home Medications: NK [No Home Meds] 11/19/23 - Past Medical/Surgical History Diabetic: No -: Neck Cancer -: PEG -: Cholecystectomy -: Cataracts -: Hysterectomy Psychosocial/ Personal History: Patient lives at home with her son. - Family History Father Notes: no medical issues Mother Medical History: Lung disease Notes: emphysema - Social History Alcohol use: No CD- Drugs: No Caffeine use: No Place of Residence: Home Review of Systems General: Weakness Respiratory: Cough Physical Examination Temp Pulse Resp BP Pulse Ox 98.1 F 89 18 128/69 97 11/20/23 12:00 11/20/23 12:00 11/20/23 12:00 11/20/23 12:00 11/20/23 12:00 General: Alert, In no apparent distress, Oriented x3, Cachectic HEENT: Atraumatic, Normocephalic Respiratory: Normal air movement, Diminished Cardiovascular: No edema, Regular rate/rhythm Gastrointestinal: Normal bowel sounds, Other (PEG tube) Integumentary: No rashes Laboratory Data - Reviewed Microbiology Data - Reviewed Imagings Data: - Reviewed Conclusions/Impression: Problem List Sepsis secondary to left basilar pneumonia Acute hypoxic respiratory failure secondary to above Hypokalemia Dysphagia with PEG tube in place History of neck cancer Sepsis secondary to left basilar pneumonia - XR chest 11/17: " Patchy left basilar airspace opacities concerning for pneumonia." - Currently on Levaquin Afebrile Leukocytosis (WBC 18.9) Blood cultures 11/17: no growth to date Recommendations - Continue antibiotic therapy for 7 days - Currently on Levaquin. If concern for aspiration pneumonia, consider addition of Flagyl via peg tube. - alternative regimen: Augmentin and Doxycycline via PEG tube - Wean off supplemental O2 as tolerated - Nutritional supplementation - Aspiration precautions - Follow up with PCP or pulmonology as outpatient in 1-2 weeks. Case discussed with Pancho Moran
--- NOTE | 2023-11-20 17:18 | P.PN ---
Subjective Date of Service: 11/20/23 Chief Complaint: Sepsis, pneumonia Subjective: Improving (Doign much better to day daughter bedside) Much better Review of Systems General: Weakness Respiratory: Shortness of Breath Physical Examination - Vital Signs Temperature: 98.1 F Blood Pressure: 128/69 Pulse: 89 Respirations: 18 Pulse Ox (%): 97 - Physical Exam General: Alert, Oriented x3 Respiratory: Normal air movement Cardiovascular: No edema, Regular rate/rhythm Assessment And Plan - Current Problems (Diagnosis) (1) Pneumonia Current Visit: No Status: Acute Plan: Pt is doing much better today Quintin Monte of nebs Better on Xopenex Chem normal/ VS stable normal O2 satCultures neg Dc planning Qualifiers: Aspiration pneumonia type: unspecified Laterality: right Lung location: unspecified part of lung
--- NOTE | 2023-11-20 17:51 | P.PN ---
Date of Service: 11/20/23 Subjective: Awake and oriented, conversing well this morning, reports breathing better this morning and feeling well On 2 L nasal cannula, will try to wean Walking test showing oxygen saturation of 88% ROS: 10 point ROS as noted above, otherwise negative Physical exam GEN: AAOx3, NAD HEENT: Normal conjunctiva, sclera anicteric CV: RRR, S1S2 present, no edema Pulm: Nonlabored respirations on nasal cannula, mild ext wheezing ABD: Soft and benign on palpation, bowel sounds present, ND/NT MSK: No joint tenderness Integumentary: No rashes Neuro: Normal speech, normal affect Vitals reviewed Assessment: Sepsis secondary to left basilar pneumonia Acute hypoxic respiratory failure secondary to above Hypokalemia Dysphagia with PEG tube in place History of neck cancer-1998 Plan: Sepsis secondary to left basilar pneumonia Acute hypoxic respiratory failure secondary to above Continue antibiotics/Levaquin Blood cultures obtained the ED-NGTD SIRS criteria present, lactate less than 2 Pulmonology consulted Wean O2 as tolerated-walking test showing 88% oxygen saturation requesting home O2 Hypokalemia Replaced in ED, protocol in place Dysphagia with PEG tube in place History of neck cancer-1998 Has had PEG tube for the last 5 years Uses Nutren 2.0-8 ounces 3 times daily at home Will continue Does take thin/liquids by mouth- possibly causing aspiration pneumonia Speech therapy recommends n.p.o., tube feedings continued DVT PPX:Lovenox Code status:DNR Discharge Plan: Home Plan to discharge in: 72 Hours
[2023-11-21 07:01] LABS: Absolute Basophils 0.1 K/uL (0-0.5); Absolute Eosinophils 0.1 K/uL (0-0.5); Absolute Monocytes 0.8 K/uL (0.1-1.3); Basophils % 0.3 % (0-1.3); Eosinophils % 0.5 % (0-4.4); Hematocrit 37.6 % (36.0-45.0); Hemoglobin 12.6 g/dL (12.0-15.0); Lymphocytes % 5.1 % (15.3-44.8); MCH 32.3 pg (27.0-35.0); MCHC 33.5 g/dL (32.0-36.0); MCV 96.3 fL (80-100); MPV 9.8 fL (7.6-11.3); Monocytes % 4.2 % (3.3-12.3); Neutrophils % 89.9 % (41.7-73.7); Platelets 330 thou/uL (152-406); RBC Red Blood Cell Count 3.91 M/uL (3.86-4.86); Red Cell Distribution Width 13.2 % (12.1-15.2)
[2023-11-21 07:12] LABS: Anion Gap 9.1 mEq/L (5.0-15.0); Magnesium 2.5 mg/dL (1.6-2.4); Potassium 4.1 mEq/L (3.5-5.1)
--- NOTE | 2023-11-21 08:36 | RAD REPORT ---
EXAM DESCRIPTION: RADChest Single View11/21/2023 6:04 am CLINICAL HISTORY: pneumonia COMPARISON: Chest Single View dated 11/18/2023; Chest Pa And Lat (2 Views) dated 09/20/2022; Chest Pa And Lat (2 Views) dated 01/11/2022; Chest Pa And Lat (2 Views) dated 01/04/2022hest Single View dated ; Chest Pa And Lat (2 Views) dated 09/20/2022; Chest Pa And Lat (2 Views) dated 01/11/2022; [place] st Pa And Lat (2 Views) dated 01/04/2022 TECHNIQUE: Portable AP view of the chest. FINDINGS: Partial improvement of left basilar patchy airspace opacification. No pneumothorax or eff usion. The cardiomediastinal contours are unremarkable. IMPRESSION: Partial improvement of left basilar patchy airspace opacification, may relate to atelect asis or pneumonia.
[2023-11-21] MEDS: levoFLOXacin 500 MG TAB PO SCH (08:48)
[2023-11-21 10:15] VITALS: O2SAT 96
[2023-11-21 10:45] VITALS: BP 150/71; TEMP 98.1
--- NOTE | 2023-11-21 11:33 | P.DS ---
Admission Date: 11/18/23 Discharge Date: 11/24/23 Disposition: ROUTINE DISCHARGE Discharge Condition: FAIR Reason for Admission: Sepsis, pneumonia Brief History of Present Illness: Diagnosis Sepsis secondary to left basilar pneumonia Acute hypoxic respiratory failure secondary to above Hypokalemia Dysphagia with PEG tube in place History of neck cancer-1998 HPI 11/18/23 Kandy Rose is a 73 year old female with history of neck cancer status post chemo/radiation now with PEG tube for dysphagia presents emergency department chief complaint of progressive shortness of breath over the course of the last 2 weeks and cough for 1 week. She does report she has previous episodes of aspiration pneumonia, denies any knowledge of any particular event recently. She was evaluated in the emergency department labs are significant for white blood cell 12.5 potassium 2.9 lactic acid 1.4 she was tachycardic rate around 110. Chest x-ray with suspected left-sided pneumonia, ED provider wishes to admit for further valuation management of sepsis, pneumonia, hypoxic respiratory failure. Hospital Course: Kandy Rose is a pleasant 73 year old female with a past medical history s ignificant for neck cancer status post chemo/radiation now with PEG tube for dysphagia who was admitted to the [facility] on 11/18/23 for Sepsis secondary to left basilar pneumonia. Kandy Rose presented to the ED 11/18/2023 with chief complaint of progressive shortness of breath over the course of 2 weeks. At that time she had experienced episodes of aspiration pneumonia. She has now been hospitalized and treated for pneumonia likely aspiration as well. Swallow study was performed by speech and language pathology and recommends nothing by mouth to prevent aspiration. Continue with tube feedings as normal. Cough medicine, antibiotic, and steroids called into your pharmacy. Follow up with PCP in 1 week. Home oxygen to be delivered for home use. PCP to monitor continued need in the upcoming days. Speech and language pathologist: The patient sometimes takes small sips of water to moisten her mouth which puts her at risk for aspiration. The patient demons trates a gurgly vocal quality and is likely aspirating with any PO intake. It was recommended that patient avoid any PO and instead use lemon glycerine swabs, mouth sponges lightly moistened, and biotene mouth moisturizer spray. The daughter verbalized understanding of teaching. On 11/21/23, Kandy was seen on morning rounds and deemed medically stable for discharge. Kandy was discharged with instructions to schedule follow-up appointments with PCP and. Kandy was provided prescriptions for xopenex, prednisone, levaquin, and robitussin with codienwillie. The patient and family members were given the opportunity to ask questions and reported no further questions. Furthermore, all questions were answered to the best of my ability. A copy of this discharge summary will be sent to the above providers to facilitate continuity of care. Today, I personally spent 50 minutes with Kandy, of which greater than 50% of the time was spent in patient education, counseling, and coordination of care as described above. Physical exam GEN: Awake, alert, and oriented x3, calm, NAD HEENT: Normal conjunctiva, sclera anicteric CV: S1S2 present,regular rate and rhythm, no edema Pulm: Nonlabored respirations on nasal cannula, mild ext wheezing ABD: bowel sounds present, soft on palpation, ND/NT MSK: No joint tenderness Integumentary: No rashes Neuro: Normal speech, normal affect Vital Signs/Physical Exam: Temp Pulse Resp BP Pulse Ox 98.1 F 87 17 150/71 H 94 11/21/23 08:00 11/21/23 08:00 11/21/23 08:00 11/21/23 08:00 11/21/23 08:00 Laboratory Data at Discharge: WBC 19.00 thou/uL (4.3-10.9) H 11/21/23 06:37 Hgb 12.6 g/dL (12.0-15.0) 11/21/23 06:37 Hct 37.6 % (36.0-45.0) 11/21/23 06:37 Plt Count 330 thou/uL (152-406) 11/21/23 06:37 PT 15.3 SECONDS (9.5-12.5) H 11/18/23 09:20 INR 1.40 11/18/23 09:20 APTT 30.5 SECONDS (24.3-36.9) 11/18/23 09:20 Sodium 141 mEq/L (136-145) 11/21/23 06:37 Potassium 4.1 mEq/L (3.5-5.1) D 11/21/23 06:37 BUN 25 mg/dL (7-18) H 11/21/23 06:37 Creatinine 0.65 mg/dL (0.55-1.02) 11/21/23 06:37 Glucose 113 mg/dL (74-106) H 11/21/23 06:37 Magnesium 2.5 mg/dL (1.6-2.4) H 11/21/23 06:37 Total Bilirubin 0.3 mg/dL (0.2-1.0) 11/18/23 09:20 AST 15 U/L (15-37) 11/18/23 09:20 ALT 12 U/L (13-56) L 11/18/23 09:20 Alkaline Phosphatase 82 U/L (45-117) 11/18/23 09:20 Home Medications: Guaifen W/Codeine Syrup [ROBITUSSIN A-C Syrup*] 5 ml PO QID PRN 5 Days #100 ml 11/21/23 Levalbuterol [Xopenex*] 0.63 mg NEB [id number] 5 Days #20 vial 11/21/23 levoFLOXacin [Levaquin*] 500 mg PO DAILY 7 Days #7 tab 11/21/23 predniSONE [Deltasone*] 10 mg FT DAILY 5 Days #5 tab 11/21/23 New Medications: Levalbuterol [Xopenex*] 0.63 mg NEB [id number] 5 Days #20 vial predniSONE [Deltasone*] 10 mg FT DAILY 5 Days #5 tab levoFLOXacin [Levaquin*] 500 mg PO DAILY 7 Days #7 tab Guaifen W/Codeine Syrup [ROBITUSSIN A-C Syrup*] 5 ml PO QID PRN 5 Days #100 ml PRN Reason: Cough Physician Discharge Instructions: Kandy Rose presented to the ED 11/18/2023 with chief complaint of progressive shortness of breath over the course of 2 weeks. At that time she had exp erienced episodes of aspiration pneumonia. She has now been hospitalized and treated for pneumonia likely aspiration as well. Swallow study was performed by speech and language pathology and recommends nothing by mouth to prevent aspiration. Continue with tube feedings as normal. Cough medicine, antibiotic, and steroids called into your pharmacy. Follow up with PCP in 1 week. Home oxygen to be delivered for home use. PCP to monitor continued need in the upcoming days. Speech and language pathologist: The patient sometimes takes small sips of water to moisten her mouth which puts her at risk for aspiration. The patient demonstrates a gurgly vocal quality and is likely aspirating with any PO intake. It was recommended that patient avoid any PO and instead use lemon glycerine swabs, mouth sponges lightly moistened, and biotene mouth moisturizer spray. The daughter verbalized understanding of teaching. 1. Please call and schedule a follow-up appointment with your PCP in one week. - Please follow-up with your PCP for medication refills/adjustments 2. Continue tube feeding diet, no intake by mouth. 3. Moisten mouth with glycerin swabs or biotene mouth moisturizer spray, no small sips of water 4. Continue nutritional supplement via PEG tube New medication Levaquin 500 mg p.o. daily x 7 days Xopenex 0.63 mg every 6 hours as needed for shortness of breath x 5 days Guaifen with codeine 5 mL p.o. 4 times daily as needed for cough x 5 days Prednisone 10 mg p.o. daily x 5 days Diet: Tube feeds Activity: Fall precautions Followup: Lucy Tyler, [employer] [Primary Care Provider] - 1-2 Weeks (call to schedule an appointment) Time spent managing pt's care (in minutes): 50
== END 2023-11-21 11:42 | disposition home or self-care (01) | DRG 871 ==
LOC: ER 09:00 → ERHOLD 10:53 → 4TH 18:15
PROVIDERS: ADMIT Hospitalist; ATTEND Internal Medicine
DX: A41.9 Sepsis, unspecified organism (principal); J69.0 Pneumonitis due to inhalation of food and vomit; J96.01 Acute respiratory failure with hypoxia; R64 Cachexia; Z68.1 Body mass index [BMI] 19.9 or less, adult; E87.6 Hypokalemia; R13.10 Dysphagia, unspecified; Z93.1 Gastrostomy status; Z66 Do not resuscitate; Z97.4 Presence of external hearing-aid; Z92.3 Personal history of irradiation; Z11.52 Encounter for screening for COVID-19; Z92.21 Personal history of antineoplastic chemotherapy; Z79.52 Long term (current) use of systemic steroids; Z90.49 Acquired absence of other specified parts of digestive tract; Z79.899 Other long term (current) drug therapy; Z90.710 Acquired absence of both cervix and uterus
CPT/HCPCS: 0241U; 36415; 71045; 80048; 80053; 83605; 83735; 84132; 85025; 85610; 85730; 87040; 92610; 93005; 94640; 96365; 96366; 99285; J0360; J1650; J2930; J3480; J7030; J7512; J7613; J7614; J7644